=== PATIENT | female | born 1985 | race Caucasian/White ===

== ENCOUNTER 2020-04-29 08:29 | Outpatient (REF) | payer BC, SELFPAY ==
[2020-04-29 11:54] LABS: Hematocrit 42.3 % (37-47); Hemoglobin 13.8 g/dl (12.0-16.0); Mean Corpuscular HGB Conc 32.6 g/dl (31.0-35.0); Mean Corpuscular Hemoglobin 30.3 pg (27.0-33.0); Mean Platelet Volume 9.4 fL (9.4-12.3); Platelet Count 305 X10*3/uL (160-400); Red Blood Count 4.55 X10*6/uL (4.20-5.50); Red Cell Distribution Width 12.6 % (11.0-16.0); White Blood Count 10.4 X10*3/uL (4.8-10.8)
[2020-04-29 12:13] LABS: UPreg QC Valid YES; Urine Pregnancy NEGATIVE (NEGATIVE)
[2020-04-29 12:20] LABS: Alanine Aminotransferase 25 U/L (0-31); Albumin Level 4.1 g/dL (3.5-5.0); Alkaline Phosphatase 64 U/L (39-117); Anion Gap 14 (12-20); Aspartate Amino Transferase 21 U/L (5-31); Bilirubin Total 0.3 mg/dL (0.0-1.0); Blood Urea Nitrogen 14 mg/dL (9-16); Calcium 8.7 mg/dL (8.4-10.2); Carbon Dioxide 28 mmol/L (22-29); Chloride 104 mmol/L (96-108); Cholesterol 117 mg/dL; Estimated Glomerular Filt Rate > 60; Glucose Fasting 98 mg/dL (60-99); HDL Cholesterol 35 mg/dL; LDL Cholesterol Calculated 57 mg/dl; Potassium 4.7 mmol/L (3.3-5.1); Sodium 141 mmol/L (135-145); Total Protein 7.3 g/dL (6.5-8.0); Triglycerides 125 mg/dL
[2020-04-29 12:50] LABS: TSH reflex Free T4 3.11 uIU/mL (0.32-4.0)
== END 2020-04-29 08:30 | disposition home or self-care (01) ==
LOC: HO.HMGCLDS 08:29
PROVIDERS: PCP Internal Medicine; Visit Provider Internal Medicine
DX: Z00.00 Encounter for general adult medical examination without abnormal findings (principal); E66.01 Morbid (severe) obesity due to excess calories; F41.9 Anxiety disorder, unspecified; I10 Essential (primary) hypertension
CPT/HCPCS: 36415; 80053; 80061; 81025; 84443; 85027

== ENCOUNTER 2021-09-18 09:34 | Outpatient (REF) | payer BC, SELFPAY ==
[2021-09-18 11:33] LABS: MANUAL DIFF FLAG NO
[2021-09-18 11:44] LABS: Appearance Urine HAZY; Color Urine YELLOW; Glucose Urine UA NEG (NEG); Leukocyte Esterase Urine 2+ (NEG); Nitrite Urine NEG (NEG); Specific Gravity - Urine 1.025 (1.005-1.025); Urine Blood NEG (NEG); Urine Ketones NEG (NEG); Urine Protein TRACE MG/DL (NEG-TRACE)
[2021-09-18 11:52] LABS: Basophils Absolute Auto 0.1 X10*3/uL (0.0-0.2); Basophils Percent Auto 1.1 % (0-2); Eosinophils Absolute Auto 0.2 X10*3/uL (0.0-0.4); Hematocrit 40.9 % (37.0-47.0); Hemoglobin 13.6 g/dl (12.0-16.0); Imm Gran Abs Auto 0.03 X10*3/uL (0.00-0.03); Imm Gran Pct Auto 0.4 % (0.0-0.4); Lymphocytes Absolute Auto 2.1 X10*3/uL (1.2-4.9); Lymphocytes Percent Auto 27.2 % (20-40); Mean Corpuscular HGB Conc 33.3 g/dl (31.0-35.0); Mean Corpuscular Hemoglobin 30.3 pg (27.0-33.0); Mean Corpuscular Volume 91.1 fL (80.0-98.0); Mean Platelet Volume 9.4 fL (9.4-12.3); Monocytes Absolute Auto 0.5 X10*3/uL (0.1-1.2); Monocytes Percent Auto 6.1 % (2-11); Neutrophils Absolute Auto 4.8 x10*3/uL (2.0-8.3); Neutrophils Percent Auto 63.2 % (45-73); Platelet Count 289 X10*3/uL (160-400); Red Blood Count 4.49 X10*6/uL (4.20-5.50); Red Cell Distribution Width 12.8 % (11.0-16.0); White Blood Count 7.5 X10*3/uL (4.8-10.8)
[2021-09-18 12:06] LABS: Mucus Urine 1+ /LPF; Squamous Epithelial Cell Urine 2+ /LPF
[2021-09-18 12:09] LABS: Estimated Average Glucose 108 mg/dL; Hemoglobin A1c % 5.4 %
[2021-09-18 12:17] LABS: Alanine Aminotransferase 21 U/L (0-31); Albumin Level 4.2 g/dL (3.5-5.0); Alkaline Phosphatase 63 U/L (39-117); Anion Gap 14 (12-20); Aspartate Amino Transferase 17 U/L (5-31); Bilirubin Total 0.5 mg/dL (0.0-1.0); Blood Urea Nitrogen 11 mg/dL (9-16); Carbon Dioxide 26 mmol/L (22-29); Chloride 104 mmol/L (96-108); Cholesterol 141 mg/dL; Estimated Glomerular Filt Rate > 60; Glucose Fasting 95 mg/dL (60-99); HDL Cholesterol 37 mg/dL; LDL Cholesterol Calculated 70 mg/dl; Potassium 4.5 mmol/L (3.3-5.1); Sodium 139 mmol/L (135-145); Total Protein 7.4 g/dL (6.5-8.0); Triglycerides 174 mg/dL
[2021-09-18 12:22] LABS: Insulin 31 uU/mL (2-29); TSH reflex Free T4 3.33 uIU/mL (0.32-4.0)
== END 2021-09-18 09:35 | disposition home or self-care (01) ==
LOC: HO.HMGCLDS 09:34
PROVIDERS: Visit Provider Internal Medicine
DX: Z00.00 Encounter for general adult medical examination without abnormal findings (principal); I10 Essential (primary) hypertension; E28.2 Polycystic ovarian syndrome
CPT/HCPCS: 36415; 80053; 80061; 81001; 83036; 83525; 84443; 85025

== ENCOUNTER → 2021-12-03 12:12 | Outpatient (BNVA) | payer BC, SELFPAY | PROVIDERS: PCP Internal Medicine; Visit Provider Dietitian, Registered | DX: E66.01 Morbid (severe) obesity due to excess calories (principal); Z68.43 Body mass index [BMI] 50.0-59.9, adult | CPT/HCPCS: 97802 ==

== ENCOUNTER → 2022-01-28 12:42 | Outpatient (BNVA) | payer BC, SELFPAY | PROVIDERS: PCP Internal Medicine; Visit Provider Dietitian, Registered | DX: E66.01 Morbid (severe) obesity due to excess calories (principal) | CPT/HCPCS: 97803 ==

== ENCOUNTER 2022-03-24 08:53 | Outpatient (REF) | payer BC, SELFPAY ==
[2022-03-24 11:19] LABS: MANUAL DIFF FLAG NO
[2022-03-24 11:30] LABS: Appearance Urine Cloudy; Color Urine Yellow; Glucose Urine UA Negative (Negative); Leukocyte Esterase Urine Trace (Negative); Nitrite Urine Negative (Negative); UMIC TRIGGER UA YES; Urine Blood Negative (Negative); Urine Ketones Negative (Negative); Urine Protein 30 (1+) mg/dL (Neg-Trace)
[2022-03-24 11:38] LABS: Basophils Absolute Auto 0.1 X10*3/uL (0.0-0.2); Basophils Percent Auto 0.9 % (0-2); Eosinophils Absolute Auto 0.2 X10*3/uL (0.0-0.4); Eosinophils Percent Auto 2.4 % (0-4); Hematocrit 42.4 % (37.0-47.0); Hemoglobin 14.1 g/dl (12.0-16.0); Imm Gran Abs Auto 0.06 X10*3/uL (0.00-0.03); Imm Gran Pct Auto 0.7 % (0.0-0.4); Lymphocytes Absolute Auto 1.9 X10*3/uL (1.2-4.9); Lymphocytes Percent Auto 22.7 % (20-40); Mean Corpuscular HGB Conc 33.3 g/dl (31.0-35.0); Mean Corpuscular Hemoglobin 30.3 pg (27.0-33.0); Mean Platelet Volume 9.5 fL (9.4-12.3); Monocytes Absolute Auto 0.5 X10*3/uL (0.1-1.2); Monocytes Percent Auto 5.3 % (2-11); Neutrophils Absolute Auto 5.8 x10*3/uL (2.0-8.3); Platelet Count 283 X10*3/uL (160-400); Red Blood Count 4.66 X10*6/uL (4.20-5.50); Red Cell Distribution Width 12.6 % (11.0-16.0); White Blood Count 8.5 X10*3/uL (4.8-10.8)
[2022-03-24 11:46] LABS: Bacteria Urine None Seen (None Seen); RBC Urine 0-2 /HPF (0-2); WBC Urine 0-5 /HPF (0-5)
[2022-03-24 11:56] LABS: Estimated Average Glucose 111 mg/dL; Hemoglobin A1c % 5.5 %
[2022-03-24 12:17] LABS: Alanine Aminotransferase 20 U/L (0-31); Albumin Level 4.2 g/dL (3.5-5.0); Alkaline Phosphatase 69 U/L (39-117); Anion Gap 13 (12-20); Aspartate Amino Transferase 17 U/L (5-31); Bilirubin Total 0.3 mg/dL (0.0-1.0); Blood Urea Nitrogen 12 mg/dL (9-16); Calcium 9.1 mg/dL (8.4-10.2); Carbon Dioxide 27 mmol/L (22-29); Chloride 104 mmol/L (96-108); Estimated Glomerular Filt Rate > 60; Glucose Fasting 115 mg/dL (60-99); Potassium 4.7 mmol/L (3.3-5.1); Sodium 139 mmol/L (135-145); Total Protein 7.3 g/dL (6.5-8.0)
[2022-03-24 12:40] LABS: TSH reflex Free T4 4.19 uIU/mL (0.32-4.0)
[2022-03-24 13:34] LABS: Free T4 (Free Thyroxine) 0.82 ng/dL (0.71-1.85)
[2022-03-27 05:14] LABS: TS Negative Control Passed; TS Panel A 0; TS Panel B 0; TS Positive Control Passed; TSpotTB Negative (Negative)
== END 2022-03-24 08:54 | disposition home or self-care (01) ==
LOC: HO.HMGCLDS 08:53
PROVIDERS: PCP Internal Medicine; Visit Provider Internal Medicine
DX: Z00.00 Encounter for general adult medical examination without abnormal findings (principal); E28.2 Polycystic ovarian syndrome; I10 Essential (primary) hypertension
CPT/HCPCS: 36415; 80053; 81001; 83036; 84439; 84443; 85025; 86481

== ENCOUNTER 2022-03-24 09:03 | Outpatient (REF) | payer BC, SELFPAY ==
[2022-03-27 22:02] LABS: HPV mRNA E6/E7 Not Detected (Not Detected)
== END 2022-03-24 09:04 | disposition home or self-care (01) ==
LOC: HO.LNP 09:03
PROVIDERS: Visit Provider Internal Medicine
DX: Z01.419 Encounter for gynecological examination (general) (routine) without abnormal findings (principal); E28.2 Polycystic ovarian syndrome; I10 Essential (primary) hypertension
CPT/HCPCS: 87624; 88142

== ENCOUNTER 2022-04-02 09:06 | Outpatient (REF) | payer BC, SELFPAY ==
[2022-04-02 11:41] LABS: Appearance Urine Clear; Color Urine Yellow; Glucose Urine UA Negative (Negative); Leukocyte Esterase Urine Moderate (2+) (Negative); Nitrite Urine Negative (Negative); PH 7.5 (5.0-9.0); Specific Gravity - Urine 1.025 (1.005-1.025); UMIC TRIGGER UA YES; Urine Blood Negative (Negative); Urine Ketones Negative (Negative); Urine Protein 30 (1+) mg/dL (Neg-Trace)
[2022-04-02 11:48] LABS: Bacteria Urine Trace (None Seen); Hyaline Casts Urine 0-2 /LPF (0-2); RBC Urine 0-2 /HPF (0-2); WBC Urine 21-50 /HPF (0-5)
[2022-04-02 13:18] LABS: Creatinine Urine 121.41 mg/dL; Microalbum/Creatinine Ratio Ur 101.3 ug/mg cr
== END 2022-04-02 09:07 | disposition home or self-care (01) ==
LOC: HO.HMGCLDS 09:06
PROVIDERS: PCP Internal Medicine; Visit Provider Internal Medicine
DX: R80.9 Proteinuria, unspecified (principal)
CPT/HCPCS: 81001; 82043

== ENCOUNTER 2022-04-06 13:45 | Outpatient (REF) | payer BC, SELFPAY ==
[2022-04-06 16:30] LABS: Appearance Urine Clear; Color Urine Yellow; Glucose Urine UA Negative (Negative); Leukocyte Esterase Urine Trace (Negative); Nitrite Urine Negative (Negative); PH 8.5 (5.0-9.0); UMIC TRIGGER UA YES; Urine Blood Negative (Negative); Urine Ketones Negative (Negative); Urine Protein 30 (1+) mg/dL (Neg-Trace)
[2022-04-06 16:33] LABS: Bacteria Urine Trace (None Seen); Hyaline Casts Urine 0-2 /LPF (0-2); RBC Urine 0-2 /HPF (0-2); WBC Urine 0-5 /HPF (0-5)
== END 2022-04-06 13:46 | disposition home or self-care (01) ==
LOC: HO.HMGCLDS 13:45
PROVIDERS: PCP Internal Medicine; Visit Provider Internal Medicine
DX: R80.9 Proteinuria, unspecified (principal)
CPT/HCPCS: 81001; 87086

== ENCOUNTER → 2022-05-27 13:16 | Outpatient (BNVA) | payer BC, SELFPAY | PROVIDERS: PCP Internal Medicine; Visit Provider Dietitian, Registered | DX: E66.01 Morbid (severe) obesity due to excess calories (principal); Z68.43 Body mass index [BMI] 50.0-59.9, adult | CPT/HCPCS: 97803 ==

== ENCOUNTER 2022-09-30 11:10 | Outpatient (REF) | payer BC, SELFPAY ==
[2022-09-30 14:39] LABS: TSH reflex Free T4 2.87 uIU/mL (0.32-4.0)
== END 2022-09-30 11:11 | disposition home or self-care (01) ==
LOC: HO.HMGCLDS 11:10
PROVIDERS: PCP Internal Medicine; Visit Provider Internal Medicine
DX: E03.9 Hypothyroidism, unspecified (principal); R80.9 Proteinuria, unspecified
CPT/HCPCS: 36415; 84443

== ENCOUNTER 2022-11-25 14:22 | Outpatient (AMB) | payer BC, SELFPAY ==
[2022-11-25 14:27] VITALS: BMI 58.7
--- NOTE | 2022-11-25 14:27 | A.OFFVIS_ITS ---
Intake VS Expanded 11/25/22 14:27 Height 5 ft 7 in Weight 375 lb 0.101 oz BMI 58.7 Intake Visit Reasons: wt management Allergies No Known Allergies Allergy (Verified 03/24/22 08:15) HPI Nutrition Presentation Details Pt presents for 6 months MNT f/u for obesity. Pt reports having stopped meal planning and resuming old habits , combination of eating out and vacation Physical activity : keeping sedentary -contemplating starting physical activity routine Most Recent Diabetes Results: Microalb/Creat Ratio 101.3 ug/mg cr 04/02/22 Cholesterol 141 mg/dL 09/18/21 HDL Cholesterol 37 mg/dL 09/18/21 Triglycerides 174 mg/dL 09/18/21 Creatinine 0.75 mg/dL (0.5-1.4) 03/24/22 Blood Urea Nitrogen 12 mg/dL (9-16) 03/24/22 Sodium 139 mmol/L (135-145) 03/24/22 Potassium 4.7 mmol/L (3.3-5.1) 03/24/22 Chloride 104 mmol/L (96-108) 03/24/22 Carbon Dioxide 27 mmol/L (22-29) 03/24/22 Calcium 9.1 mg/dL (8.4-10.2) 03/24/22 AST 17 U/L (5-31) 03/24/22 ALT 20 U/L (0-31) 03/24/22 Total Protein 7.3 g/dL (6.5-8.0) 03/24/22 Albumin 4.2 g/dL (3.5-5.0) 03/24/22 [facility] Medical History (Updated 12/03/22 @ 12:59 by Chloe Bella, RD, LDN) Annual physical exam HTN (hypertension) PCOS (polycystic ovarian syndrome) Hypothyroid Amenorrhea Morbid obesity Menorrhagia Anxiety Family History Father Diabetes mellitus Mother Hypothyroidism Paternal Grandmother Ovarian cancer Paternal Grandfather Diabetes mellitus Social History Housing: House Alcohol intake: current Alcohol intake frequency: holidays/special occasions only Patient Tobacco Use Status: Never used Tobacco e-Cigarette/Vaping Use: Never Used Current occupational status: employed Cognitive needs: No Hearing needs: No Vision needs: Yes Assessment & Plan Assessment & Plan (1) Morbid obesity: Comment: BMI 58.7/375 lbs (11/2022) 56/360 lbs (05/27/22), 56.2/359 lbs(01/28/22), 57.9/370 lbs (12/03/21) Code(s): E66.01 - Morbid (severe) obesity due to excess calories Plan: Resume reducing calories from high fat foods and engaging in physical activity goal 2513-9135 calorie meal plan ? Pt's set goal (Date: 12/03/21 ): reduce bedtime snack to <200 calories and less than 15 g carb at follow up (Date: 01/28/22 ): 50% f/u 11/2022 DID not continue - Used wt : 163 kg on 01/28/22 Est kcal as per MSJ: 2810 -250= 2560 (40% carb, 30% fat/prot) Est fluid needs: 4075 ml/d (25 ml/kg bw) Rec fiber: increase to 8-10 g per day and gradually increase to 25 g/d or as tolerated Rec Na: < 2000 mg /d Educate patient on: (R= Reviewed, V = verbalizes understanding N/R= Needs review N/A= not applicable) * Food sources of carbohydrates and serving adequate serving sizes : R V * Difference between complex carbohydrates and simple carbohydrates, role of fiber: R * Differences between fats (MUFA/PUFA/saturated fats, trans fats) and food sources of various fats: R * Food sources of sodium and salt and healthy modifications for heart health an d kidney health: R * Vitamins and minerals: N/R * How to interpret food labels: R * Healthy Plate method concept: R * Physical activity: benefits and precaution: N/R * Health risks associated with excess body weight including but not limited to DM, CHD, risks of bone fractures Patient Instructions: Goal of walking daily for 10 minutes getting into a routine and gradually increase by 2 minutes until reaching 30 minutes 3-4 times a week Increase water to 16 oz per day and gradually increase to 32 oz/day use phone jaelyn to keep track of your meals Coding Level of Care Code Nutr Indiv Subseq (14857) Diagnoses Morbid obesity E66.01 Time Spent (min) 30
== END 2022-11-25 15:14 | disposition home or self-care (01) ==
PROVIDERS: PCP Internal Medicine; Visit Provider Dietitian, Registered
DX: E66.01 Morbid (severe) obesity due to excess calories (principal)

== ENCOUNTER → 2022-11-25 14:22 | Outpatient (BNVA) | payer BC, SELFPAY | PROVIDERS: PCP Internal Medicine; Visit Provider Dietitian, Registered | DX: E66.01 Morbid (severe) obesity due to excess calories (principal); Z68.43 Body mass index [BMI] 50.0-59.9, adult; Z71.3 Dietary counseling and surveillance | CPT/HCPCS: 97803 ==

== ENCOUNTER 2023-01-13 13:49 | Outpatient (AMB) | payer BC, SELFPAY ==
[2023-01-13 13:57] VITALS: BMI 58.1
--- NOTE | 2023-01-13 13:57 | A.OFFVIS_ITS ---
Intake VS Expanded 01/13/23 13:57 Height 5 ft 7 in Weight 370 lb 13.08 oz BMI 58.1 Intake Visit Reasons: WT Management Allergies No Known Allergies Allergy (Verified 03/24/22 08:15) HPI Nutrition Presentation Details Pt presents for MNT for obesity. Pt reports participating in group exercise once /wk Planning to join the gym with Gradually working on reducing portions, switching to smaller plates HAs questions regarding macros Most Recent Diabetes Results: Microalb/Creat Ratio 101.3 ug/mg cr 04/02/22 Creatinine 0.75 mg/dL (0.5-1.4) 03/24/22 Blood Urea Nitrogen 12 mg/dL (9-16) 03/24/22 Sodium 139 mmol/L (135-145) 03/24/22 Potassium 4.7 mmol/L (3.3-5.1) 03/24/22 Chloride 104 mmol/L (96-108) 03/24/22 Carbon Dioxide 27 mmol/L (22-29) 03/24/22 Calcium 9.1 mg/dL (8.4-10.2) 03/24/22 AST 17 U/L (5-31) 03/24/22 ALT 20 U/L (0-31) 03/24/22 Total Protein 7.3 g/dL (6.5-8.0) 03/24/22 Albumin 4.2 g/dL (3.5-5.0) 03/24/22 [facility] Medical History (Updated 01/14/23 @ 09:08 by Chloe Bella, RD, LDN) Annual physical exam HTN (hypertension) PCOS (polycystic ovarian syndrome) Hypothyroid Amenorrhea Morbid obesity Menorrhagia Anxiety Family History Father Diabetes mellitus Mother Hypothyroidism Paternal Grandmother Ovarian cancer Paternal Grandfather Diabetes mellitus Social History Housing: House Alcohol intake: current Alcohol intake frequency: holidays/special occasions only Patient Tobacco Use Status: Never used Tobacco e-Cigarette/Vaping Use: Never Used Current occupational status: employed Cognitive needs: No Hearing needs: No Vision needs: Yes Assessment & Plan Assessment & Plan (1) Morbid obesity: Comment: BMI 58.1 (01/11) 58.7/375 lbs (11/2022) 56/360 lbs (05/27/22), 56.2/359 lbs(01/28/22), 57.9/370 lbs (12/03/21), Code(s): E66.01 - Morbid (severe) obesity due to excess calories Plan: Resume reducing calories from high fat foods and engaging in physical activity goal 3090-4640 calorie meal plan ? Pt's set goal (Date: 12/03/21 ): reduce bedtime snack to <200 calories and less than 15 g carb at follow up (Date: 01/28/22 ): 50% f/u 11/2022 DID not continue - Used wt : 163 kg on 01/28/22 Est kcal as per MSJ: 2810 -250= 2560 (40% carb, 30% fat/prot) Est fluid needs: 4075 ml/d (25 ml/kg bw) Rec fiber: increase to 8-10 g per day and gradually increase to 25 g/d or as tolerated Rec Na: < 2000 mg /d Educate patient on: (R= Reviewed, V = verbalizes understanding N/R= Needs review N/A= not applicable) Reviewed Differences in MACRO * Food sources of carbohydrates and serving adequate serving sizes : R V * Difference between complex carbohydrates and simple carbohydrates, role of fiber: R * Differences between fats (MUFA/PUFA/saturated fats, trans fats) and food sources of various fats: R * Food sources of sodium and salt and healthy modifications for heart health and kidney health: R * Vitamins and minerals: N/R * How to interpret food labels: R * Healthy Plate method concept: R * Physical activity: benefits and precaution: N/R * Health risks associated with excess body weight including but not limited to DM, CHD, risks of bone fractures: R Patient Instructions: Choose foods high in fiber (salads/non starchy vegetables) with lean protein foods Continue working on reducing sugars keep food record/phone jaelyn goal wt loss by next f/u 4-5 lbs less Coding Level of Care Code Nutr Indiv Subseq (52351) Diagnoses Morbid obesity E66.01 Time Spent (min) 30
== END 2023-01-13 14:41 | disposition home or self-care (01) ==
PROVIDERS: PCP Internal Medicine; Visit Provider Dietitian, Registered
DX: E66.01 Morbid (severe) obesity due to excess calories (principal)

== ENCOUNTER → 2023-01-13 13:49 | Outpatient (BNVA) | payer BC, SELFPAY | PROVIDERS: PCP Internal Medicine; Visit Provider Dietitian, Registered | DX: E66.01 Morbid (severe) obesity due to excess calories (principal); Z68.43 Body mass index [BMI] 50.0-59.9, adult; Z71.3 Dietary counseling and surveillance | CPT/HCPCS: 97803 ==

== ENCOUNTER 2023-03-10 14:21 | Outpatient (AMB) | payer BC, SELFPAY ==
[2023-03-10 14:35] VITALS: BMI 57.0
--- NOTE | 2023-03-10 14:35 | A.OFFVIS_ITS ---
Intake VS Expanded 03/10/23 14:35 Height 5 ft 7 in Weight 364 lb 3.258 oz BMI 57.0 Intake Visit Reasons: Obesity/LVM Allergies No Known Allergies Allergy (Verified 03/24/22 08:15) HPI Nutrition Presentation Details Pt presnts for MNT nutrition f/u for obesity , PCOS, HTN. Pt reports working on including more water in the diet , reports having 16 oz of water/day Increasing physical activity, keeps track of steps ranging from 6,000-8000 Most Recent Diabetes Results: Microalb/Creat Ratio 101.3 ug/mg cr 04/02/22 Creatinine 0.75 mg/dL (0.5-1.4) 03/24/22 Blood Urea Nitrogen 12 mg/dL (9-16) 03/24/22 Sodium 139 mmol/L (135-145) 03/24/22 Potassium 4.7 mmol/L (3.3-5.1) 03/24/22 Chloride 104 mmol/L (96-108) 03/24/22 Carbon Dioxide 27 mmol/L (22-29) 03/24/22 Calcium 9.1 mg/dL (8.4-10.2) 03/24/22 AST 17 U/L (5-31) 03/24/22 ALT 20 U/L (0-31) 03/24/22 Total Protein 7.3 g/dL (6.5-8.0) 03/24/22 Albumin 4.2 g/dL (3.5-5.0) 03/24/22 [facility] Medical History (Updated 03/10/23 @ 14:38 by Chloe Bella, RD, LDN) Annual physical exam HTN (hypertension) PCOS (polycystic ovarian syndrome) Hypothyroid Amenorrhea Morbid obesity Menorrhagia Anxiety Family History Father Diabetes mellitus Mother Hypothyroidism Paternal Grandmother Ovarian cancer Paternal Grandfather Diabetes mellitus Social History Housing: House Alcohol intake: current Alcohol intake frequency: holidays/special occasions only Patient Tobacco Use Status: Never used Tobacco e-Cigarette/Vaping Use: Never Used Current occupational status: employed Cognitive needs: No Hearing needs: No Vision needs: Yes Assessment & Plan Assessment & Plan (1) Morbid obesity: Comment: BMI 57. 0 (03/13) , 58.1 (01/11) 58.7/375 lbs (11/2022) 56/360 lbs (05/27/22), 56.2/359 lbs(01/28/22), 57.9/370 lbs (12/03/21), Code(s): E66.01 - Morbid (severe) obesity due to excess calories Plan: Resume reducing calories from high fat foods and engaging in physical activity goal 1512-7571 calorie meal plan ? Pt's set goal (Date: 12/03/21 ): reduce bedtime snack to <200 calories and less than 15 g carb at follow up (Date: 01/28/22 ): 50% f/u 11/2022 DID not continue - follow up 02/2023 - meeting 50% of the time Used wt : 163 kg on 01/28/22 Est kcal as per MSJ: 2810 -250= 2560 (40% carb, 30% fat/prot) Est fluid needs: 4075 ml/d (25 ml/kg bw) Rec fiber: increase to 8-10 g per day and gradually increase to 25 g/d or as tolerated Rec Na: < 2000 mg /d Educate patient on: (R= Reviewed, V = verbalizes understanding N/R= Needs review N/A= not applicable) Reviewed Differences in MACRO * Food sources of carbohydrates and serving adequate serving sizes : R V * Difference between complex carbohydrates and simple carbohydrates, role of fiber: R * Differences between fats (MUFA/PUFA/saturated fats, trans fats) and food sources of various fats: R * Food sources of sodium and salt and healthy modifications for heart health and kidney health: R * Vitamins and minerals: R * How to interpret food labels: R * Healthy Plate method concept: R * Physical activity: benefits and precaution: N/R * Health risks associated with excess body weight including but not limited to DM, CHD, risks of bone fractures: R * Patient Instructions: Continue working on diet modifications, reducing sugars, total carb at meal to less than 230 g /day distributed in 4 small meal/day following healthy plate method Include water to 32 oz/day Continue increasing physical activity- goal 74628 steps/d Coding Level of Care Code Nutr Indiv Subseq (40346) Diagnoses Morbid obesity E66.01 Time Spent (min) 20
== END 2023-03-10 14:58 | disposition home or self-care (01) ==
PROVIDERS: PCP Internal Medicine; Visit Provider Dietitian, Registered
DX: E66.01 Morbid (severe) obesity due to excess calories (principal)

== ENCOUNTER → 2023-03-10 14:21 | Outpatient (BNVA) | payer BC, SELFPAY | PROVIDERS: PCP Internal Medicine; Visit Provider Dietitian, Registered | DX: E66.01 Morbid (severe) obesity due to excess calories (principal); Z68.43 Body mass index [BMI] 50.0-59.9, adult; Z71.3 Dietary counseling and surveillance | CPT/HCPCS: 97803 ==

== ENCOUNTER 2023-03-25 07:51 | Outpatient (AMB) | payer BC, SELFPAY ==
--- NOTE | 2023-03-25 08:04 | MHC.PC.OV ---
Vital Signs 03/25/23 08:06 Height 5 ft 7 in Weight 367 lb BMI 57.5 BP 144/90 H Blood Pressure Location Lt brachial Position Sitting Pulse 79 Pulse Source Pulse Oximeter Pulse Oximetry (%) 98 Oxygen Delivery Method Room Air Intake Visit Reasons: Annual PE Intake Note: Pt is here today for PE. Allergies No Known Allergies Allergy (Verified 03/25/23 08:07) Medication List - Last Reconciled 03/25/23 by Angélica Ford MD bisoprolol fumarate 5 mg PO DAILY flu vac qs 2019(4 yr up)CD(PF) mL IM levothyroxine 88 mcg PO DAILY metformin ER 2,000 mg (4 x 500 mg) PO DAILY sertraline 50 mg PO DAILY Tobacco use date assessed: 03/25/23 Dental Screening Dental Screen Date: 03/25/23 Did you have a dental visit in the last 12 months?: Yes Did you have a dental problem in the last 6 months where you did not have access to dental care?: No Was dental information given to patient?: Patient has dentist HPI Annual PE HPI Details Pt presents for PE. Pt c/o GERD symptoms once or twice a month. Patient denies dysphagia odynophagia hematochezia melena. She gained a lot a weight over the summer and has been working with wiring mechanic trying to lose it. Patient applied for adoption. [facility] Medical History Annual physical exam HTN (hypertension) PCOS (polycystic ovarian syndrome) Hypothyroid Amenorrhea Morbid obesity Menorrhagia Anxiety Family History Father Diabetes mellitus Mother Hypothyroidism Paternal Grandmother Ovarian cancer Paternal Grandfather Diabetes mellitus Social History Housing: House Alcohol intake: current Alcohol intake frequency: holidays/special occasions only Patient Tobacco Use Status: Never used Tobacco e-Cigarette/Vaping Use: Never Used Current occupational status: employed Cognitive needs: No Hearing needs: No Vision needs: Yes Questionnaire Thrive Questionnaire Date Thrive assessed: 03/24/22 AUDIT C Alcohol Use Questionnaire (AUDIT-C) 1. How often do you have a drink containing alcohol?: Monthly or less 2. How many drinks containing alcohol do you have on a typical day when you are drinking?: 1 or 2 3. How often do you have six or more drinks on one occasion?: Never Total Score: 1 PRO-7 AMB Questionnaire PRO-7 Date PRO - 7 assessed: 03/24/22 Source: Developed by Drs. Billy Emery, Rowena De La Cruz, Soy Griggs and colleagues, with an educational loraine from [employer]. Review of Systems Const All systems reviewed & are unremarkable except as noted in HPI and below Reports no additional complaints Eyes Reports no additional complaints ENT Reports no additional complaints Card Reports no additional complaints Resp Reports no additional complaints GI Reports no additional complaints Reports no additional complaints Physical exam (Primary Care) Vital Signs: Last Vital Signs Pulse 79 03/25/23 08:06 BP 144/90 H 03/25/23 08:06 Pulse Ox 98 03/25/23 08:06 Oxygen Delivery Method Room Air 03/25/23 08:06 BMI result Body Mass Index 57.5 Tobacco/Smoking Status: Tobacco use Status Tobacco use date assessed 03/25/23 03/25/23 08:10 Patient Tobacco Use Status Never used Tobacco 03/25/23 08:10 e-Cigarette/Vaping Use Never Used 03/25/23 08:04 Thrive Assessment: Date of Thrive Assessment Date Thrive assessed 03/24/22 03/25/23 08:04 Const General: no acute distress HENMT Head: Yes normal to inspection Ears: hearing grossly normal bilaterally Mouth: Normal oral and palatal mucosa present Throat: Yes posterior oropharynx normal Eyes General: appearance normal, both eyes and all related structures Neck Neck: Yes no lymphadenopathy and Yes supple Resp Effort & Inspection: normal respiratory effort Auscultation: clear to auscultation bilaterally Cardio Rhythm: regular rhythm Heart sounds: S1 normal heart sound present and S2 normal heart sound present GI Inspection: Yes normal to inspection Palpation (GI): Soft to palpation Percussion: Yes normal to percussion Auscultation: normal bowel sounds Assessment and Plan Assessment & Plan (1) Hypothyroid: Code(s): E03.9 - Hypothyroidism, unspecified Plan: Continue levothyroxine check TSH today (2) Morbid obesity: Comment: BMI 57. 0 (03/13) , 58.1 (01/11) 58.7/375 lbs (11/2022) 56/360 lbs (05/27/22), 56.2/359 lbs(01/28/22), 57.9/370 lbs (12/03/21), Code(s): E66.01 - Morbid (severe) obesity due to excess calories Plan: Continue weight management program with wiring mechanic (3) PCOS (polycystic ovarian syndrome): Comment: on Metformin f/u [facility] community organization worker Code(s): E28.2 - Polycystic ovarian syndrome Plan: Continue metformin (4) Annual physical exam: Code(s): Z00.00 - Encounter for general adult medical examination without abnormal findings Plan: Well-balanced diet regular physical activity weight loss discussed with the patient. She will have a fasting blood work today (5) HTN (hypertension): Code(s): I10 - Essential (primary) hypertension Plan: Olmesartan 5 mg will be added. Patient will follow-up in 1 month (6) Sleep apnea: Code(s): G47.30 - Sleep apnea, unspecified Plan: Obtain sleep studies to evaluate for obstructive sleep apnea Orders: Orders Hemoglobin A1c Today E03.9 - Hypothyroidism, unspecified, E28.2 - Polycystic ovarian syndrome, E66.01 - Morbid (severe) obesity due to excess calories, I10 - Essential (primary) hypertension, Z00.00 - Encounter for general adult medical examination without abnormal findings Complete Blood Count Auto Diff Today E03.9 - Hypothyroidism, unspecified, E28.2 - Polycystic ovarian syndrome, E66.01 - Morbid (severe) obesity due to excess calories, I10 - Essential (primary) hypertension, Z00.00 - Encounter for general adult medical examination without abnormal findings Lipid Panel Today E03.9 - Hypothyroidism, unspecified, E28.2 - Polycystic ovarian syndrome, E66.01 - Morbid (severe) obesity due to excess calories, I10 - Essential (primary) hypertension, Z00.00 - Encounter for general adult medical examination without abnormal findings TSH reflex Free T4 Today E03.9 - Hypothyroidism, unspecified, E28.2 - Polycystic ovarian syndrome, E66.01 - Morbid (severe) obesity due to excess calories, I10 - Essential (primary) hypertension, Z00.00 - Encounter for general adult medical examination without abnormal findings UA w Microscopic Today E03.9 - Hypothyroidism, unspecified, E28.2 - Polycystic ovarian syndrome, E66.01 - Morbid (severe) obesity due to excess calories, I10 - Essential (primary) hypertension, Z00.00 - Encounter for general adult medical examination without abnormal findings RT home sleep study Today G47.30 - Sleep apnea, unspecified Comprehensive [place]. Panel Fast Today E03.9 - Hypothyroidism, unspecified, E28.2 - Polycystic ovarian syndrome, E66.01 - Morbid (severe) obesity due to excess calories, I10 - Essential (primary) hypertension, Z00.00 - Encounter for general adult medical examination without abnormal findings Microalbumin, Random (w Creat) Today E03.9 - Hypothyroidism, unspecified, E28.2 - Polycystic ovarian syndrome, E66.01 - Morbid (severe) obesity due to excess calories, I10 - Essential (primary) hypertension, Z00.00 - Encounter for general adult medical examination without abnormal findings Medications: New olmesartan 5 mg PO DAILY 30 tabs 1RF Coding Level of Care Code Est Pt Prev Care 18-39y(62102) Diagnoses Hypothyroid E03.9 Morbid obesity E66.01 PCOS (polycystic ovarian syndrome) E28.2 Annual physical exam Z00.00 HTN (hypertension) I10 Sleep apnea G47.30
[2023-03-25 08:06] VITALS: BP 144/90; PULSE 79; O2SAT 98; BMI 57.5
== END 2023-03-25 08:47 | disposition home or self-care (01) ==
PROVIDERS: PCP Internal Medicine; Visit Provider Internal Medicine
DX: Z00.00 Encounter for general adult medical examination without abnormal findings (principal); E66.01 Morbid (severe) obesity due to excess calories; Z68.43 Body mass index [BMI] 50.0-59.9, adult; E03.9 Hypothyroidism, unspecified; E28.2 Polycystic ovarian syndrome; I10 Essential (primary) hypertension; G47.30 Sleep apnea, unspecified
CPT/HCPCS: 99395

== ENCOUNTER 2023-03-25 08:47 | Outpatient (REF) | payer BC, SELFPAY | END 2023-03-25 08:48 | disposition home or self-care (01) | LOC: HO.HMGCLDS 08:47 | PROVIDERS: PCP Internal Medicine; Visit Provider Internal Medicine | DX: Z00.00 Encounter for general adult medical examination without abnormal findings (principal); E03.9 Hypothyroidism, unspecified; E66.01 Morbid (severe) obesity due to excess calories; I10 Essential (primary) hypertension; E28.2 Polycystic ovarian syndrome | CPT/HCPCS: 36415; 80053; 80061; 81001; 82043; 82570; 83036; 84443; 85025 ==

== ENCOUNTER → 2023-05-04 15:58 | Outpatient (REF) | payer BC, SELFPAY | LOC: HO.SL 15:58 | PROVIDERS: PCP Internal Medicine; Visit Provider Internal Medicine | DX: G47.33 Obstructive sleep apnea (adult) (pediatric) (principal) | CPT/HCPCS: 95806 ==

== ENCOUNTER → 2023-05-04 16:03 | Outpatient (BNV) | payer BC, SELFPAY | PROVIDERS: PCP Internal Medicine; Visit Provider Internal Medicine | DX: G47.33 Obstructive sleep apnea (adult) (pediatric) (principal) | CPT/HCPCS: 95806 ==

== ENCOUNTER 2023-05-19 12:39 | Outpatient (AMB) | payer BC, SELFPAY ==
[2023-05-19 12:51] VITALS: BP 128/88; PULSE 82; O2SAT 98; BMI 56.1
--- NOTE | 2023-05-19 12:51 | MHC.PC.OV ---
Vital Signs 05/19/23 12:51 Height 5 ft 7 in Weight 358 lb BMI 56.1 BP 128/88 Blood Pressure Location Lt brachial Position Sitting Pulse 82 Pulse Source Pulse Oximeter Pulse Oximetry (%) 98 Oxygen Delivery Method Room Air Intake Visit Reasons: dm follow up Intake Note: Pt is here today for a follow up visit on HTN. Allergies No Known Allergies Allergy (Verified 05/19/23 13:08) Medication List - Last Reconciled 05/19/23 by Angélica Ford MD bisoprolol fumarate 5 mg PO DAILY flu vac qs 2019(4 yr up)CD(PF) mL IM levothyroxine 88 mcg PO DAILY metformin ER 2,000 mg (4 x 500 mg) PO DAILY olmesartan 10 mg (2 x 5 mg) PO DAILY sertraline 50 mg PO DAILY Tobacco use date assessed: 05/19/23 HPI dm follow up HPI Details Patient presents for the follow-up of hypothyroidism PCOS hyperglycemia and hypertension. [facility] Medical History (Updated 05/19/23 @ 13:53 by Angélica Ford MD) Annual physical exam HTN (hypertension) PCOS (polycystic ovarian syndrome) Hypothyroid Amenorrhea Morbid obesity Menorrhagia Anxiety Family History Father Diabetes mellitus Mother Hypothyroidism Paternal Grandmother Ovarian cancer Paternal Grandfather Diabetes mellitus Social History Housing: House Alcohol intake: current Alcohol intake frequency: holidays/special occasions only Patient Tobacco Use Status: Never used Tobacco e-Cigarette/Vaping Use: Never Used Current occupational status: employed Cognitive needs: No Hearing needs: No Vision needs: Yes Questionnaire Thrive Questionnaire Date Thrive assessed: 03/24/22 PRO-7 AMB Questionnaire PRO-7 Date PRO - 7 assessed: 03/24/22 Source: Developed by Drs. Billy Emery, Rowena De La Cruz, Soy Griggs and colleagues, with an educational loraine from [employer]. Review of Systems Const All systems reviewed & are unremarkable except as noted in HPI and below Reports no additional complaints Eyes Reports no additional complaints ENT Reports no additional complaints Card Reports no additional complaints Resp Reports no additional complaints GI Reports no additional complaints Reports no additional complaints Physical exam (Primary Care) Vital Signs: Last Vital Signs Pulse 82 05/19/23 12:51 BP 128/88 05/19/23 12:51 Pulse Ox 98 05/19/23 12:51 Oxygen Delivery Method Room Air 05/19/23 12:51 BMI result Body Mass Index 56.1 Tobacco/Smoking Status: Tobacco use Status Tobacco use date assessed 05/19/23 05/19/23 13:08 Patient Tobacco Use Status Never used Tobacco 05/19/23 12:52 e-Cigarette/Vaping Use Never Used 05/19/23 12:52 Thrive Assessment: Date of Thrive Assessment Date Thrive assessed 03/24/22 05/19/23 12:52 Const General: no acute distress HENMT Head: Yes normal to inspection Neck Neck: Yes supple Resp Effort & Inspection: normal respiratory effort Auscultation: clear to auscultation bilaterally Cardio Rhythm: regular rhythm Heart sounds: S1 normal heart sound present and S2 normal heart sound present GI Inspection: Yes normal to inspection Palpation (GI): Soft to palpation Assessment and Plan Assessment & Plan (1) HTN (hypertension): Code(s): I10 - Essential (primary) hypertension Plan: Increase olmesartan to 10 mg a day and continue bisoprolol, check basic metabolic panel in 2 weeks and follow-up in 6 weeks (2) Proteinuria: Code(s): R80.9 - Proteinuria, unspecified Plan: Obtain 24 hour urine collection (3) Sleep apnea: Comment: mild YONY sleep studies 05/15 Code(s): G47.30 - Sleep apnea, unspecified Plan: Sleeping on his side and weight loss discussed (4) Morbid obesity: Comment: BMI 57. 0 (03/13) , 58.1 (01/11) 58.7/375 lbs (11/2022) 56/360 lbs (05/27/22), 56.2/359 lbs(01/28/22), 57.9/370 lbs (12/03/21), not interested in GLP 1 agonist Code(s): E66.01 - Morbid (severe) obesity due to excess calories Plan: weight loss discussed and follow-up with transportation department supervisor Orders: Orders Basic Metabolic Panel 2 Weeks I10 - Essential (primary) hypertension, R80.9 - Proteinuria, unspecified Protein, 24 Hr Urine Group Today I10 - Essential (primary) hypertension, R80.9 - Proteinuria, unspecified RINKU Reflex Titer and Pattern Today E66.01 - Morbid (severe) obesity due to excess calories, G47.30 - Sleep apnea, unspecified, I10 - Essential (primary) hypertension, R80.9 - Proteinuria, unspecified Medications: Changed From olmesartan 5 mg PO DAILY 30 tabs 1RF To olmesartan 10 mg (2 x 5 mg) PO DAILY 60 tabs 2RF Coding Level of Care Code Est Pt Level 4 (28840) Diagnoses HTN (hypertension) I10 Proteinuria R80.9 Sleep apnea G47.30 Morbid obesity E66.01
== END 2023-05-19 13:52 | disposition home or self-care (01) ==
PROVIDERS: PCP Internal Medicine; Visit Provider Internal Medicine
DX: I10 Essential (primary) hypertension (principal); R80.9 Proteinuria, unspecified; E66.01 Morbid (severe) obesity due to excess calories; Z68.43 Body mass index [BMI] 50.0-59.9, adult; G47.30 Sleep apnea, unspecified
CPT/HCPCS: 99214

== ENCOUNTER 2023-05-19 14:21 | Outpatient (AMB) | payer BC, SELFPAY ==
[2023-05-19 14:34] VITALS: BMI 56.3
--- NOTE | 2023-05-19 14:34 | A.OFFVIS_ITS ---
Intake VS Expanded 05/19/23 14:34 Height 5 ft 7 in Weight 359 lb 5.655 oz BMI 56.3 Intake Visit Reasons: obesity/LVM Allergies No Known Allergies Allergy (Verified 05/19/23 13:08) HPI Nutrition Presentation Details Pt presents for MNT for obesity Pt is motivated, working on gradual diet modifications and reports engaging in physical activity once a week 45 minutes ia consistent manner for the past 7 weeks. Reports is very supportive in meal planning and exercise routine as well. fluid : 16 oz water on exercise day, 10 oz other days Most Recent Diabetes Results: Microalb/Creat Ratio 100.0 ug/mg cr (<30) H 03/25/23 Cholesterol 144 mg/dL (<200) 03/25/23 HDL Cholesterol 36 mg/dL (>40) L 03/25/23 Triglycerides 150 mg/dL (<150) H 03/25/23 Creatinine 0.77 mg/dL (0.5-1.4) 03/25/23 Blood Urea Nitrogen 13 mg/dL (9-16) 03/25/23 Sodium 140 mmol/L (135-145) 03/25/23 Potassium 4.4 mmol/L (3.3-5.1) 03/25/23 Chloride 103 mmol/L (96-108) 03/25/23 Carbon Dioxide 28 mmol/L (22-29) 03/25/23 Calcium 9.1 mg/dL (8.4-10.2) 03/25/23 AST 21 U/L (5-31) 03/25/23 ALT 25 U/L (0-31) 03/25/23 Total Protein 7.6 g/dL (6.5-8.0) 03/25/23 Albumin 4.2 g/dL (3.5-5.0) 03/25/23 [facility] Medical History (Updated 05/19/23 @ 14:55 by Chloe Bella, RD, LDN) Annual physical exam HTN (hypertension) PCOS (polycystic ovarian syndrome) Hypothyroid Amenorrhea Morbid obesity Menorrhagia Anxiety Family History Father Diabetes mellitus Mother Hypothyroidism Paternal Grandmother Ovarian cancer Paternal Grandfather Diabetes mellitus Social History Housing: House Alcohol intake: current Alcohol intake frequency: holidays/special occasions only Patient Tobacco Use Status: Never used Tobacco e-Cigarette/Vaping Use: Never Used Current occupational status: employed Cognitive needs: No Hearing needs: No Vision needs: Yes Assessment & Plan Assessment & Plan (1) Morbid obesity: Comment: BMI 56.3 (05/19/23), BMI 57. 0 (03/13) , 58.1 (01/11) 58.7/375 lbs (11/2022) 56/360 lbs (05/27/22), 56.2/359 lbs (01/28/22), 57.9/370 lbs (12/03/21), Code(s): E66.01 - Morbid (severe) obesity due to excess calories Plan: Resume reducing calories from high fat foods and engaging in physical activity- goal [id number] calorie meal plan ? Pt's set goal (Date: 12/03/21 ): reduce bedtime snack to <200 calories and less than 15 g carb at follow up (Date: 01/28/22 ): 50% f/u 11/2022 DID not continue - follow up 02/2023 - meeting 50% of the time Used wt : 163 kg on 01/28/22 Est kcal as per MSJ: 2810 -250= 2560 (40% carb, 30% fat/prot) Est fluid needs: 4075 ml/d (25 ml/kg bw) Rec fiber: increase to 8-10 g per day and gradually increase to 25 g/d or as tolerated Rec Na: < 2000 mg /d Educate patient on: (R= Reviewed, V = verbalizes understanding N/R= Needs review N/A= not applicable) Reviewed Differences in MACRO * Food sources of carbohydrates and serving adequate serving sizes : R V * Difference between complex carbohydrates and simple carbohydrates, role of fiber: R * Differences between fats (MUFA/PUFA/saturated fats, trans fats) and food sources of various fats: R * Food sources of sodium and salt and healthy modifications for heart health and kidney health: R * Vitamins and minerals: R * How to interpret food labels: R * Healthy Plate method concept: R * Physical activity: benefits and precaution: N/R * Health risks associated with excess body weight including but not limited to DM, CHD, risks of bone fractures: R * Patient Instructions: -Continue working on following healthy plate method -Increase water goal 16oz daily -Engage in physical activity 2 times a week vs once a week + go for walks with dog daily Coding Level of Care Code Nutr Indiv Subseq (95382) Diagnoses Morbid obesity E66.01 Time Spent (min) 25
== END 2023-05-19 15:00 | disposition home or self-care (01) ==
PROVIDERS: PCP Internal Medicine; Visit Provider Dietitian, Registered
DX: E66.01 Morbid (severe) obesity due to excess calories (principal)

== ENCOUNTER → 2023-05-19 14:21 | Outpatient (BNVA) | payer BC, SELFPAY | PROVIDERS: PCP Internal Medicine; Visit Provider Dietitian, Registered | DX: E66.01 Morbid (severe) obesity due to excess calories (principal); Z68.43 Body mass index [BMI] 50.0-59.9, adult; Z71.3 Dietary counseling and surveillance | CPT/HCPCS: 97803 ==

== ENCOUNTER 2023-05-30 08:30 | Outpatient (REF) | payer BC, SELFPAY ==
[2023-05-31 18:54] LABS: Total Volume 24 Hour Urine 1450 mL
[2023-05-31 19:05] LABS: Creatinine, 24Hr Urine 2.1 G/Day (1.0-2.0); Creatinine, mg/dL 145.92; Protein 24 Hr Urine 276 mg/Day (<150); Protein mg/dL 19 mg/dL
== END 2023-05-30 08:31 | disposition home or self-care (01) ==
LOC: HO.HMGCLNP 08:30
PROVIDERS: PCP Internal Medicine; Visit Provider Internal Medicine
DX: R80.9 Proteinuria, unspecified (principal); I10 Essential (primary) hypertension
CPT/HCPCS: 84156

== ENCOUNTER 2023-06-05 10:28 | Outpatient (REF) | payer BC, SELFPAY ==
[2023-06-05 12:34] LABS: Anion Gap 9 (12-20); Blood Urea Nitrogen 13 mg/dL (9-16); Carbon Dioxide 31 mmol/L (22-29); Chloride 105 mmol/L (96-108); Estimated Glomerular Filt Rate > 60; Glucose Random 113 mg/dL (60-115); Sodium 141 mmol/L (135-145)
[2023-06-14 10:57] LABS: Anti Nuclear Antibody Pattern Nuclear, Homogeneous; Anti Nuclear Antibody Screen POSITIVE (NEGATIVE)
== END 2023-06-05 10:29 | disposition home or self-care (01) ==
LOC: HO.HMGCLDS 10:28
PROVIDERS: PCP Internal Medicine; Visit Provider Internal Medicine
DX: I10 Essential (primary) hypertension (principal); R80.9 Proteinuria, unspecified; E66.01 Morbid (severe) obesity due to excess calories; G47.30 Sleep apnea, unspecified
CPT/HCPCS: 36415; 80048; 86038; 86039

== ENCOUNTER 2023-07-07 10:43 | Outpatient (AMB) | payer BC, SELFPAY ==
[2023-07-07 10:53] VITALS: BP 138/85; PULSE 78; O2SAT 98; BMI 56.1
--- NOTE | 2023-07-07 10:53 | A.OFFPC_ITS ---
Vital Signs 07/07/23 10:53 Height 5 ft 7 in Weight 358 lb BMI 56.1 BP 138/85 Blood Pressure Location Rt brachial Position Sitting Pulse 78 Pulse Source Pulse Oximeter Pulse Oximetry (%) 98 Oxygen Delivery Method Room Air Intake Visit Reasons: 6WK DM F/U Allergies No Known Allergies Allergy (Verified 07/07/23 10:56) Medication List - Last Reconciled 07/07/23 by Angélica Ford MD bisoprolol fumarate 5 mg PO DAILY flu vac qs 2019(4 yr up)CD(PF) mL IM levothyroxine 88 mcg PO DAILY metformin ER 2,000 mg (4 x 500 mg) PO DAILY olmesartan 20 mg PO DAILY sertraline 50 mg PO DAILY Tobacco use date assessed: 07/07/23 Dental Screening Dental Screen Date: 03/25/23 HPI 6WK DM F/U HPI Details Pt presents for f/u HTN, hypothyroid, PCOS. [facility] Medical History (Updated 07/07/23 @ 11:38 by Angélica Ford MD) Annual physical exam HTN (hypertension) PCOS (polycystic ovarian syndrome) Hypothyroid Amenorrhea Morbid obesity Menorrhagia Anxiety Family History Father Diabetes mellitus Mother Hypothyroidism Paternal Grandmother Ovarian cancer Paternal Grandfather Diabetes mellitus Social History Housing: House Alcohol intake: current Alcohol intake frequency: holidays/special occasions only Patient Tobacco Use Status: Never used Tobacco e-Cigarette/Vaping Use: Never Used service: No Current occupational status: employed Cognitive needs: No Hearing needs: No Vision needs: Yes Questionnaire Thrive Questionnaire Date Thrive assessed: 03/24/22 PRO-7 AMB Questionnaire PRO-7 Date PRO - 7 assessed: 03/24/22 Source: Developed by Drs. Billy Emery, Rowena De La Cruz, Soy Griggs and colleagues, with an educational loraine from [employer]. Review of Systems Const All systems reviewed & are unremarkable except as noted in HPI and below Eyes Reports no additional complaints ENT Reports no additional complaints Card Reports no additional complaints Resp Reports no additional complaints GI Reports no additional complaints Physical exam (Primary Care) Vital Signs: Last Vital Signs Pulse 78 07/07/23 10:53 Pulse Ox 98 07/07/23 10:53 Oxygen Delivery Method Room Air 07/07/23 10:53 BMI result Body Mass Index 56.1 Tobacco/Smoking Status: Tobacco use Status Tobacco use date assessed 07/07/23 07/07/23 10:58 Patient Tobacco Use Status Never used Tobacco 07/07/23 10:58 e-Cigarette/Vaping Use Never Used 07/07/23 10:58 Thrive Assessment: Date of Thrive Assessment Date Thrive assessed 03/24/22 07/07/23 10:58 Const General: no acute distress HENMT Throat: Yes posterior oropharynx normal Resp Effort & Inspection: normal respiratory effort Auscultation: clear to auscultation bilaterally Cardio Rhythm: regular rhythm Heart sounds: S1 normal heart sound present and S2 normal heart sound present GI Inspection: Yes normal to inspection Palpation (GI): Soft to palpation Assessment and Plan Assessment & Plan (1) Morbid obesity: Comment: BMI 56.3 (05/19/23), BMI 57. 0 (03/13) , 58.1 (01/11) 58.7/375 lbs (11/2022) 56/360 lbs (05/27/22), 56.2/359 lbs (01/28/22), 57.9/370 lbs (12/03/21), Code(s): E66.01 - Morbid (severe) obesity due to excess calories Plan: Increasing physical activity decreasing caloric intake weight loss discussed with the patient (2) Hypothyroid: Code(s): E03.9 - Hypothyroidism, unspecified Plan: Continue levothyroxine check TSH (3) HTN (hypertension): Code(s): I10 - Essential (primary) hypertension Plan: Increase olmesartan to 20 mg a day check comprehensive panel in 2 weeks follow- up in 2 months (4) Hyperglycemia: Code(s): R73.9 - Hyperglycemia, unspecified Plan: Continue ADA diet (5) PCOS (polycystic ovarian syndrome): Comment: on Metformin f/u [facility] product technology scientist Code(s): E28.2 - Polycystic ovarian syndrome Plan: Continue metformin follow-up with cold mill operator Orders: Orders Comprehensive [place]. Panel Fast 2 Weeks E03.9 - Hypothyroidism, unspecified, E66.01 - Morbid (severe) obesity due to excess calories, I10 - Essential (primary) hypertension, R73.9 - Hyperglycemia, unspecified Hemoglobin A1c 2 Weeks E03.9 - Hypothyroidism, unspecified, E66.01 - Morbid (severe) obesity due to excess calories, I10 - Essential (primary) hypertension, R73.9 - Hyperglycemia, unspecified Lipid Panel 2 Weeks E03.9 - Hypothyroidism, unspecified, E66.01 - Morbid (severe) obesity due to excess calories, I10 - Essential (primary) hypertension, R73.9 - Hyperglycemia, unspecified TSH reflex Free T4 2 Weeks E03.9 - Hypothyroidism, unspecified, E66.01 - Morbid (severe) obesity due to excess calories, I10 - Essential (primary) hypertension, R73.9 - Hyperglycemia, unspecified Medications: New olmesartan 20 mg PO DAILY 90 tabs 3RF Refilled bisoprolol fumarate 5 mg PO DAILY 90 tabs 3RF I10 - Essential (primary) hypertension Discontinued olmesartan Discontinued Reason: Doctor's Order 10 mg (2 x 5 mg) PO DAILY 60 tabs 2RF Coding Level of Care Code Est Pt Level 4 (87865) Diagnoses Morbid obesity E66.01 Hypothyroid E03.9 HTN (hypertension) I10 Hyperglycemia R73.9 PCOS (polycystic ovarian syndrome) E28.2
== END 2023-07-07 11:42 | disposition home or self-care (01) ==
PROVIDERS: PCP Internal Medicine; Visit Provider Internal Medicine
DX: E03.9 Hypothyroidism, unspecified (principal); E66.01 Morbid (severe) obesity due to excess calories; Z68.43 Body mass index [BMI] 50.0-59.9, adult; I10 Essential (primary) hypertension; R73.9 Hyperglycemia, unspecified; E28.2 Polycystic ovarian syndrome
CPT/HCPCS: 99214

== ENCOUNTER 2023-07-19 14:19 | Outpatient (AMB) | payer BC, SELFPAY ==
[2023-07-19 14:25] VITALS: BMI 56.4
--- NOTE | 2023-07-19 14:25 | MHC.AMNUTRGE ---
Intake VS Expanded 07/19/23 14:25 Height 5 ft 7 in Weight 360 lb 3.765 oz BMI 56.4 Intake Visit Reasons: Obesity Allergies No Known Allergies Allergy (Verified 07/07/23 10:56) HPI Nutrition Presentation Details Pt presents for MNT for morbid obesity. Pt reports gradually working on diet modification Water intake , continues to have less than 16oz/d- needs to increase fluids reports including fruits 3/day pastries and similar foods : continues physical activity: once a week , 30-45 min at gym - planning to increase to 2 times/wk Most Recent Diabetes Results: Microalb/Creat Ratio 100.0 ug/mg cr (<30) H 03/25/23 Cholesterol 144 mg/dL (<200) 03/25/23 HDL Cholesterol 36 mg/dL (>40) L 03/25/23 Triglycerides 150 mg/dL (<150) H 03/25/23 Creatinine 0.78 mg/dL (0.5-1.4) 06/05/23 Blood Urea Nitrogen 13 mg/dL (9-16) 06/05/23 Sodium 141 mmol/L (135-145) 06/05/23 Potassium 4.0 mmol/L (3.3-5.1) 06/05/23 Chloride 105 mmol/L (96-108) 06/05/23 Carbon Dioxide 31 mmol/L (22-29) H 06/05/23 Calcium 9.0 mg/dL (8.4-10.2) 06/05/23 AST 21 U/L (5-31) 03/25/23 ALT 25 U/L (0-31) 03/25/23 Total Protein 7.6 g/dL (6.5-8.0) 03/25/23 Albumin 4.2 g/dL (3.5-5.0) 03/25/23 [facility] Medical History (Updated 07/22/23 @ 09:18 by Chloe Bella, RD, LDN) Annual physical exam HTN (hypertension) PCOS (polycystic ovarian syndrome) Hypothyroid Amenorrhea Morbid obesity Menorrhagia Anxiety Family History Father Diabetes mellitus Mother Hypothyroidism Paternal Grandmother Ovarian cancer Paternal Grandfather Diabetes mellitus Social History Housing: House Alcohol intake: current Alcohol intake frequency: holidays/special occasions only Patient Tobacco Use Status: Never used Tobacco e-Cigarette/Vaping Use: Never Used service: No Current occupational status: employed Cognitive needs: No Hearing needs: No Vision needs: Yes Assessment & Plan Assessment & Plan (1) Morbid obesity: Comment: BMI 56.3 (05/19/23) (06/2023), BMI 57. 0 (03/13) , 58.1 (01/11) 58.7/375 lbs (11/2022) Code(s): E66.01 - Morbid (severe) obesity due to excess calories Plan: Resume reducing calories from high fat foods/high sodium foods and engaging in physical activity- goal 1163-0680 calorie meal plan ? Used wt : 163 kg on 01/28/22 , 06/2023 Est kcal as per MSJ: 2810 -250= 2560 (40% carb, 30% fat/prot) Est fluid needs: 4075 ml/d (25 ml/kg bw) Rec fiber: increase to 8-10 g per day and gradually increase to 25 g/d or as tolerated Rec Na: < 2000 mg /d Educate patient on: (R= Reviewed, V = verbalizes understanding N/R= Needs review N/A= not applicable) Reviewed Differences in MACRO Food sources of carbohydrates and serving adequate serving sizes : R V Difference between complex carbohydrates and simple carbohydrates, role of fiber: R Differences between fats (MUFA/PUFA/saturated fats, trans fats) and food sources of various fats: R Food sources of sodium and salt and healthy modifications for heart health and kidney health: R Vitamins and minerals: R How to interpret food labels: R Healthy Plate method concept: R Physical activity: benefits and precaution: R Health risks associated with excess body weight including but not limited to DM, CHD, risks of bone fractures: R, V Patient Instructions: Continue working on reducing salt intake - remember fries, breads pancakes, chips, pastries, all processed foods, cheese, sauces, sodas/dietsodas will have salt added , choose baked potatoes, add herbs for flavor ,vinegar , choose fruits as part of the meal, include salads on a daily basis and vary the vegetables salads Increase on fluids 32 oz /day (water, low sugar beverages with no sodium, read labels choosing no sodium added Coding Level of Care Code Nutr Indiv Subseq (47529) Diagnoses Morbid obesity E66.01 Time Spent (min) 25
== END 2023-07-19 14:57 | disposition home or self-care (01) ==
PROVIDERS: PCP Internal Medicine; Visit Provider Dietitian, Registered
DX: E66.01 Morbid (severe) obesity due to excess calories (principal)

== ENCOUNTER → 2023-07-19 14:19 | Outpatient (BNVA) | payer BC, SELFPAY | PROVIDERS: PCP Internal Medicine; Visit Provider Dietitian, Registered | DX: E66.01 Morbid (severe) obesity due to excess calories (principal); Z68.43 Body mass index [BMI] 50.0-59.9, adult; Z71.3 Dietary counseling and surveillance | CPT/HCPCS: 97803 ==

== ENCOUNTER 2023-07-24 09:15 | Outpatient (REF) | payer BC, SELFPAY ==
[2023-07-24 11:33] LABS: Estimated Average Glucose 111 mg/dL; Hemoglobin A1c % 5.5 % (<6.0)
[2023-07-24 12:15] LABS: Alanine Aminotransferase 20 U/L (0-31); Albumin Level 4.1 g/dL (3.5-5.0); Alkaline Phosphatase 62 U/L (39-117); Anion Gap 14 (12-20); Aspartate Amino Transferase 18 U/L (5-31); Bilirubin Total 0.4 mg/dL (0.0-1.0); Blood Urea Nitrogen 14 mg/dL (9-16); Calcium 9.3 mg/dL (8.4-10.2); Carbon Dioxide 26 mmol/L (22-29); Chloride 104 mmol/L (96-108); Cholesterol 126 mg/dL (<200); Estimated Glomerular Filt Rate > 60; Glucose Fasting 90 mg/dL (60-99); HDL Cholesterol 35 mg/dL (>40); LDL Cholesterol Calculated 70 mg/dL (<100); Potassium 4.2 mmol/L (3.3-5.1); Sodium 140 mmol/L (135-145); Total Protein 7.4 g/dL (6.5-8.0); Triglycerides 105 mg/dL (<150)
[2023-07-24 12:19] LABS: TSH reflex Free T4 2.27 uIU/mL (0.32-4.0)
== END 2023-07-24 09:16 | disposition home or self-care (01) ==
LOC: HO.HMGCLDS 09:15
PROVIDERS: PCP Internal Medicine; Visit Provider Internal Medicine
DX: R73.9 Hyperglycemia, unspecified (principal); E03.9 Hypothyroidism, unspecified; I10 Essential (primary) hypertension; E66.01 Morbid (severe) obesity due to excess calories
CPT/HCPCS: 36415; 80053; 80061; 83036; 84443

== ENCOUNTER 2023-09-16 14:26 | Outpatient (AMB) | payer BC, SELFPAY ==
[2023-09-16 14:29] VITALS: BMI 55.9
--- NOTE | 2023-09-16 14:29 | A.OFFVIS_ITS ---
VS Expanded 09/16/23 14:29 09/16/23 14:49 Height 5 ft 7 in 5 ft 7 in Weight 356 lb 14.854 oz 357 lb BMI 55.9 55.9 Intake Visit Reasons: Obesity/CONFIRMED Allergies No Known Allergies Allergy (Verified 09/20/23 11:11) Nutrition Presentation Details: Pt presents for MNT f/u morbid obesity Pt reports participating at the gym twice -3 times increasing on water 16 oz and seltzer water with a meal BS Monitoring Most Recent Diabetes Results: Cholesterol 126 mg/dL (<200) 07/24/23 HDL Cholesterol 35 mg/dL (>40) L 07/24/23 Triglycerides 105 mg/dL (<150) 07/24/23 Creatinine 0.69 mg/dL (0.5-1.4) 07/24/23 Blood Urea Nitrogen 14 mg/dL (9-16) 07/24/23 Sodium 140 mmol/L (135-145) 07/24/23 Potassium 4.2 mmol/L (3.3-5.1) 07/24/23 Chloride 104 mmol/L (96-108) 07/24/23 Carbon Dioxide 26 mmol/L (22-29) 07/24/23 Calcium 9.3 mg/dL (8.4-10.2) 07/24/23 AST 18 U/L (5-31) 07/24/23 ALT 20 U/L (0-31) 07/24/23 Total Protein 7.4 g/dL (6.5-8.0) 07/24/23 Albumin 4.1 g/dL (3.5-5.0) 07/24/23 PRO-Zcjialk-Cg.Jeor Equation Height: 5 ft 7 in Weight: 357 lb Resting Metabolic Rate: 2323.53 Calculated Activity Level: Sedentary Calories Needed to Maintain Weight: 2788.24 [facility] Medical History (Updated 09/20/23 @ 11:59 by Angélica Ford MD) Annual physical exam HTN (hypertension) PCOS (polycystic ovarian syndrome) Hypothyroid Amenorrhea Morbid obesity Menorrhagia Anxiety Surgical History Hx of tonsillectomy Family History Father Diabetes mellitus Mother Hypothyroidism Paternal Grandmother Ovarian cancer Paternal Grandfather Diabetes mellitus Social History Housing: House Alcohol intake: current Alcohol intake frequency: holidays/special occasions only Patient Tobacco Use Status: Never used Tobacco e-Cigarette/Vaping Use: Never Used service: No Current occupational status: employed Cognitive needs: No Hearing needs: No Vision needs: Yes Assessment & Plan Assessment & Plan (1) Morbid obesity: Comment: BMI 56.3 (05/19/23) (06/2023), BMI 57. 0 (03/13) , 58.1 (01/11) 58.7/375 lbs (11/2022) , 55.9 (08/2023) Code(s): E66.01 - Morbid (severe) obesity due to excess calories Category: Medical Plan: 500 Calorie reduction per day from high fat foods/high sodium foods and engaging in physical activity- goal 3073-8415 calorie meal plan ? Used wt : 162kg on 08/2023 Est kcal as per MSJ: 2788 (40% carb, 30% fat/prot) Est fluid needs: 4075 ml/d (25 ml/kg bw) about 16 cups/day Rec fiber: increase to 8-10 g per day and gradually increase to 25 g/d or as tolerated Rec Na: < 2000 mg /d Educate patient on: (R= Reviewed, V = verbalizes understanding N/R= Needs review N/A= not applicable) Reviewed Differences in MACRO * Food sources of carbohydrates and serving adequate serving sizes : R V * Difference between complex carbohydrates and simple carbohydrates, role of fiber: R * Differences between fats (MUFA/PUFA/saturated fats, trans fats) and food sources of various fats: R * Food sources of sodium and salt and healthy modifications for heart health and kidney health: R * Vitamins and minerals: R * How to interpret food labels: R * Healthy Plate method concept: R * Physical activity: benefits and precaution: R * Health risks associated with excess body weight including but not limited to DM, CHD, risks of bone fractures: R, V Patient Instructions: track your total caloric intake ( by entering all foods/beverages/sauces/sweets ), reduce by 500 from empty calorie foods (high fat/salt) Continue working on increasing fluid intake (choose low sugar) and reducing on sugars (pastries and similar foods) Coding Level of Care Code Nutr Indiv Subseq (04529) Diagnoses Morbid obesity E66.01 Time Spent (min) 20
[2023-09-22 13:59] VITALS: BMI 55.9
== END 2023-09-16 14:49 | disposition home or self-care (01) ==
PROVIDERS: PCP Internal Medicine; Visit Provider Dietitian, Registered
DX: E66.01 Morbid (severe) obesity due to excess calories (principal)

== ENCOUNTER → 2023-09-16 14:26 | Outpatient (BNVA) | payer BC, SELFPAY | PROVIDERS: PCP Internal Medicine; Visit Provider Dietitian, Registered | DX: E66.01 Morbid (severe) obesity due to excess calories (principal); Z68.43 Body mass index [BMI] 50.0-59.9, adult; Z71.3 Dietary counseling and surveillance | CPT/HCPCS: 97803 ==

== ENCOUNTER 2023-09-20 11:09 | Outpatient (AMB) | payer BC, SELFPAY ==
--- NOTE | 2023-09-20 11:10 | A.OFFPC_ITS ---
Vital Signs 09/20/23 11:11 Height 5 ft 7 in Weight 356 lb BMI 55.8 BP 136/82 Blood Pressure Location Lt brachial Position Sitting Pulse 79 Pulse Source Pulse Oximeter Pulse Oximetry (%) 99 Oxygen Delivery Method Room Air Intake Visit Reasons: 3M DM F/U Intake Note: Pt is here today for 3 months follow up visit. Allergies No Known Allergies Allergy (Verified 09/20/23 11:11) Medication List - Last Reconciled 09/20/23 by Angélica Ford MD bisoprolol fumarate 5 mg PO DAILY flu vac qs 2019(4 yr up)CD(PF) mL IM levothyroxine 88 mcg PO DAILY metformin ER 2,000 mg (4 x 500 mg) PO DAILY olmesartan 5 mg PO DAILY olmesartan 20 mg PO DAILY sertraline 50 mg PO DAILY Tobacco use date assessed: 09/20/23 Dental Screening Dental Screen Date: 03/25/23 HPI 3M DM F/U HPI Details Patient presents for the follow-up on hypertension hypothyroidism and PCOS. FOR[facility]LY [facility] Medical History (Updated 09/20/23 @ 11:59 by Angélica Ford MD) Annual physical exam HTN (hypertension) PCOS (polycystic ovarian syndrome) Hypothyroid Amenorrhea Morbid obesity Menorrhagia Anxiety Surgical History Hx of tonsillectomy Family History Father Diabetes mellitus Mother Hypothyroidism Paternal Grandmother Ovarian cancer Paternal Grandfather Diabetes mellitus Social History Housing: House Alcohol intake: current Alcohol intake frequency: holidays/special occasions only Patient Tobacco Use Status: Never used Tobacco e-Cigarette/Vaping Use: Never Used service: No Current occupational status: employed Cognitive needs: No Hearing needs: No Vision needs: Yes Questionnaire Thrive Questionnaire Date Thrive assessed: 03/24/22 PRO-7 AMB Questionnaire PRO-7 Date PRO - 7 assessed: 03/24/22 Source: Developed by Drs. Billy Emery, Rowena De La Cruz, Soy Griggs and colleagues, with an educational loraine from [employer]. Review of Systems Const All systems reviewed & are unremarkable except as noted in HPI and below Eyes Reports no additional complaints ENT Reports no additional complaints Card Reports no additional complaints Resp Reports no additional complaints GI Reports no additional complaints Reports no additional complaints Physical exam (Primary Care) Vital Signs: Last Vital Signs Pulse 79 09/20/23 11:11 BP 136/82 09/20/23 11:11 Pulse Ox 99 09/20/23 11:11 Oxygen Delivery Method Room Air 09/20/23 11:11 BMI result Body Mass Index 55.8 Tobacco/Smoking Status: Tobacco use Status Tobacco use date assessed 09/20/23 09/20/23 11:17 Patient Tobacco Use Status Never used Tobacco 09/20/23 11:17 e-Cigarette/Vaping Use Never Used 09/20/23 11:17 Thrive Assessment: Date of Thrive Assessment Date Thrive assessed 03/24/22 09/20/23 11:17 Const General: no acute distress HENMT Head: Yes normal to inspection Ears: hearing grossly normal bilaterally Throat: Yes posterior oropharynx normal Eyes General: appearance normal, both eyes and all related structures Resp Effort & Inspection: normal respiratory effort Auscultation: clear to auscultation bilaterally Cardio Rhythm: regular rhythm Heart sounds: S1 normal heart sound present and S2 normal heart sound present GI Inspection: Yes normal to inspection Palpation (GI): Soft to palpation Assessment and Plan Assessment & Plan (1) Allergies: Code(s): T78.40XA - Allergy, unspecified, initial encounter 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 0 (03/13) , 58.1 (01/11) 58.7/375 lbs (11/2022) , 55.9 (08/2023) Code(s): E66.01 - Morbid (severe) obesity due to excess calories Plan: Follow-up with sports centre manager increase physical activity decrease caloric intake (3) Hypothyroid: Code(s): E03.9 - Hypothyroidism, unspecified Plan: Continue levothyroxine (4) HTN (hypertension): Code(s): I10 - Essential (primary) hypertension Plan: Add 5 mg of olmesartan to 20 mg continue bisoprolol (5) Hyperglycemia: Code(s): R73.9 - Hyperglycemia, unspecified Plan: Monitor A1c (6) PCOS (polycystic ovarian syndrome): Comment: on Metformin f/u [facility] product management consultant Code(s): E28.2 - Polycystic ovarian syndrome Plan: Continue metformin Orders: Orders Hemoglobin A1c 3 Months E03.9 - Hypothyroidism, unspecified, E66.01 - Morbid (severe) obesity due to excess calories, I10 - Essential (primary) hypertension, R73.9 - Hyperglycemia, unspecified Microalbumin, Random (w Creat) 3 Months E03.9 - Hypothyroidism, unspecified, E66.01 - Morbid (severe) obesity due to excess calories, I10 - Essential (primary) hypertension, R73.9 - Hyperglycemia, unspecified Comprehensive [place]. Panel Fast 3 Months E03.9 - Hypothyroidism, unspecified, E66.01 - Morbid (severe) obesity due to excess calories, I10 - Essential (primary) hypertension, R73.9 - Hyperglycemia, unspecified Complete Blood Count Auto Diff 3 Months E03.9 - Hypothyroidism, unspecified, E66.01 - Morbid (severe) obesity due to excess calories, I10 - Essential (primary) hypertension, R73.9 - Hyperglycemia, unspecified Referrals Allergy & Immunology Referral T78.40XA - Allergy, unspecified, initial encounter Medications: New olmesartan take with Olmesartan 20 mg 5 mg PO DAILY 90 tabs 1RF Coding Level of Care Code Est Pt Level 4 (01928) Diagnoses Allergies T78.40XA Morbid obesity E66.01 Hypothyroid E03.9 HTN (hypertension) I10 Hyperglycemia R73.9 PCOS (polycystic ovarian syndrome) E28.2
[2023-09-20 11:11] VITALS: BP 136/82; PULSE 79; O2SAT 99; BMI 55.8
== END 2023-09-20 12:04 | disposition home or self-care (01) ==
PROVIDERS: PCP Internal Medicine; Visit Provider Internal Medicine
DX: T78.40XA Allergy, unspecified, initial encounter (principal); E66.01 Morbid (severe) obesity due to excess calories; E03.9 Hypothyroidism, unspecified; Z68.43 Body mass index [BMI] 50.0-59.9, adult; I10 Essential (primary) hypertension; R73.9 Hyperglycemia, unspecified; E28.2 Polycystic ovarian syndrome
CPT/HCPCS: 99214

== ENCOUNTER 2023-10-26 13:43 | Outpatient (AMB) | payer BC, SELFPAY ==
[2023-10-26 14:01] VITALS: BMI 56.3
--- NOTE | 2023-10-26 14:01 | A.OFFVIS_ITS ---
VS Expanded 10/26/23 14:01 Height 5 ft 7 in Weight 359 lb 12.71 oz BMI 56.3 Intake Visit Reasons: Obesity Allergies No Known Allergies Allergy (Verified 09/20/23 11:11) Nutrition Presentation Details: Pt presents for MNT f/u for obesity Pt reports working on keeping track of calories , 2300- 2500 calories/day, tracking consistently Incorporating a variety of foods and trying new foods choosing fiber rich foods BS Monitoring Most Recent Diabetes Results: Cholesterol 126 mg/dL (<200) 07/24/23 HDL Cholesterol 35 mg/dL (>40) L 07/24/23 Triglycerides 105 mg/dL (<150) 07/24/23 Creatinine 0.69 mg/dL (0.5-1.4) 07/24/23 Blood Urea Nitrogen 14 mg/dL (9-16) 07/24/23 Sodium 140 mmol/L (135-145) 07/24/23 Potassium 4.2 mmol/L (3.3-5.1) 07/24/23 Chloride 104 mmol/L (96-108) 07/24/23 Carbon Dioxide 26 mmol/L (22-29) 07/24/23 Calcium 9.3 mg/dL (8.4-10.2) 07/24/23 AST 18 U/L (5-31) 07/24/23 ALT 20 U/L (0-31) 07/24/23 Total Protein 7.4 g/dL (6.5-8.0) 07/24/23 Albumin 4.1 g/dL (3.5-5.0) 07/24/23 [facility] Medical History (Updated 11/08/23 @ 10:[address], LDN) Annual physical exam HTN (hypertension) PCOS (polycystic ovarian syndrome) Hypothyroid Amenorrhea Morbid obesity Menorrhagia Anxiety Surgical History Hx of tonsillectomy Family History Father Diabetes mellitus Mother Hypothyroidism Paternal Grandmother Ovarian cancer Paternal Grandfather Diabetes mellitus Social History Housing: House Alcohol intake: current Alcohol intake frequency: holidays/special occasions only Patient Tobacco Use Status: Never used Tobacco e-Cigarette/Vaping Use: Never Used service: No Current occupational status: employed Cognitive needs: No Hearing needs: No Vision needs: Yes Assessment & Plan Assessment & Plan (1) Morbid obesity: Comment: 56.4 (10/2023) BMI 56.3 (05/19/23) (06/2023), BMI 57. 0 (03/13) , 58.1 (01/11) 58.7/375 lbs (11/2022) Code(s): E66.01 - Morbid (severe) obesity due to excess calories Category: Medical Plan: 500 Calorie reduction per day from empty calorie foods /high sodium foods and engaging in physical activity- goal [id number] calorie/day meal plan ? Used wt : 162kg on 08/2023 Est kcal as per MSJ: 2788 (40% carb, 30% fat/prot) Est fluid needs: 4075 ml/d (25 ml/kg bw) about 16 cups/day Rec fiber: increase to 8-10 g per day and gradually increase to 25 g/d or as tolerated Rec Na: < 2000 mg /d Educate patient on: (R= Reviewed, V = verbalizes understanding N/R= Needs review N/A= not applicable) Reviewed Differences in MACRO * Food sources of carbohydrates and serving adequate serving sizes : R V * Difference between complex carbohydrates and simple carbohydrates, role of fiber: R * Differences between fats (MUFA/PUFA/saturated fats, trans fats) and food sources of various fats: R * Food sources of sodium and salt and healthy modifications for heart health and kidney health: R * Vitamins and minerals: R * How to interpret food labels: R * Healthy Plate method concept: R * Physical activity: benefits and precaution: R * Health risks associated with excess body weight including but not limited to DM, CHD, risks of bone fractures: R, V Patient Instructions: Engage in physical activity gradually to goal 30 minutes daily Continue keeping track of calories to 2500 per day, following healthy plate method Choose foods lower in salt and be mindful of high salt foods likes pastries/highly processed foods Coding Level of Care Code Nutr Indiv Subseq (18303) Diagnoses Morbid obesity E66.01 Time Spent (min) 20
== END 2023-10-26 14:35 | disposition home or self-care (01) ==
PROVIDERS: PCP Internal Medicine; Visit Provider Dietitian, Registered
DX: E66.01 Morbid (severe) obesity due to excess calories (principal)

== ENCOUNTER → 2023-10-26 13:43 | Outpatient (BNVA) | payer BC, SELFPAY | PROVIDERS: PCP Internal Medicine; Visit Provider Dietitian, Registered | DX: E66.01 Morbid (severe) obesity due to excess calories (principal); Z68.43 Body mass index [BMI] 50.0-59.9, adult; Z71.3 Dietary counseling and surveillance | CPT/HCPCS: 97803 ==

== ENCOUNTER 2023-12-25 09:10 | Outpatient (REF) | payer BC, SELFPAY ==
[2023-12-25 10:59] LABS: MANUAL DIFF FLAG NO
[2023-12-25 11:20] LABS: Basophils Absolute Auto 0.1 X10*3/uL (0.0-0.2); Basophils Percent Auto 0.9 % (0-2); Eosinophils Absolute Auto 0.2 X10*3/uL (0.0-0.4); Eosinophils Percent Auto 2.7 % (0-4); Hematocrit 39.7 % (37.0-47.0); Hemoglobin 13.2 g/dl (12.0-16.0); Imm Gran Abs Auto 0.02 X10*3/uL (0.00-0.03); Imm Gran Pct Auto 0.3 % (0.0-0.4); Lymphocytes Absolute Auto 1.9 X10*3/uL (1.2-4.9); Lymphocytes Percent Auto 32.1 % (20-40); Mean Corpuscular HGB Conc 33.2 g/dl (31.0-35.0); Mean Corpuscular Hemoglobin 30.6 pg (27.0-33.0); Mean Corpuscular Volume 91.9 fL (80.0-98.0); Mean Platelet Volume 9.5 fL (9.4-12.3); Monocytes Absolute Auto 0.4 X10*3/uL (0.1-1.2); Monocytes Percent Auto 6.3 % (2-11); Neutrophils Absolute Auto 3.4 x10*3/uL (2.0-8.3); Neutrophils Percent Auto 57.7 % (45-73); Platelet Count 275 X10*3/uL (160-400); Red Blood Count 4.32 X10*6/uL (4.20-5.50); Red Cell Distribution Width 12.7 % (11.0-16.0); White Blood Count 5.9 X10*3/uL (4.8-10.8)
[2023-12-25 11:44] LABS: Alanine Aminotransferase 19 U/L (0-31); Albumin Level 3.9 g/dL (3.5-5.0); Alkaline Phosphatase 65 U/L (39-117); Anion Gap 10 (12-20); Aspartate Amino Transferase 16 U/L (5-31); Bilirubin Total 0.3 mg/dL (0.0-1.0); Blood Urea Nitrogen 13 mg/dL (9-16); Calcium 8.6 mg/dL (8.4-10.2); Carbon Dioxide 28 mmol/L (22-29); Chloride 106 mmol/L (96-108); Estimated Glomerular Filt Rate > 60; Glucose Fasting 105 mg/dL (60-99); Potassium 4.2 mmol/L (3.3-5.1); Sodium 140 mmol/L (135-145)
[2023-12-25 12:14] LABS: Creatinine Urine 95.41 mg/dL; Microalbum/Creatinine Ratio Ur 58.6 ug/mg cr (<30)
[2023-12-25 13:06] LABS: Estimated Average Glucose 114 mg/dL; Hemoglobin A1C 126.8438 umol/L; Hemoglobin A1c % 5.6 % (<6.0); Total Hemoglobin (HGBA1C) 3413.2248 umol/L
== END 2023-12-25 09:11 | disposition home or self-care (01) ==
LOC: HO.HMGCLDS 09:10
PROVIDERS: PCP Internal Medicine; Visit Provider Internal Medicine
DX: E03.9 Hypothyroidism, unspecified (principal); E66.01 Morbid (severe) obesity due to excess calories; I10 Essential (primary) hypertension; R73.9 Hyperglycemia, unspecified
CPT/HCPCS: 36415; 80053; 82043; 82570; 83036; 85025

== ENCOUNTER 2023-12-27 10:51 | Outpatient (AMB) | payer BC, SELFPAY ==
[2023-12-27 11:35] VITALS: BP 128/82; PULSE 71; O2SAT 97; BMI 56.2
--- NOTE | 2023-12-27 11:35 | MHC.PC.OV ---
Vital Signs 12/27/23 11:35 Height 5 ft 7 in Weight 359 lb BMI 56.2 BP 128/82 Blood Pressure Location Lt brachial Position Sitting Pulse 71 Pulse Source Pulse Oximeter Pulse Oximetry (%) 97 Oxygen Delivery Method Room Air Intake Visit Reasons: 3M DM F/U Intake Note: Pt is here today for 3 months follow up visit on DM and labs. Allergies No Known Allergies Allergy (Verified 12/27/23 11:37) Medication List - Last Reconciled 12/27/23 by Angélica Ford MD bisoprolol fumarate 5 mg PO DAILY flu vac qs 2019(4 yr up)CD(PF) mL IM levothyroxine 88 mcg PO DAILY metformin ER 2,000 mg (4 x 500 mg) PO DAILY olmesartan 5 mg PO DAILY olmesartan 20 mg PO DAILY sertraline 50 mg PO DAILY Tobacco use date assessed: 12/27/23 Dental Screening Dental Screen Date: 03/25/23 HPI 3M DM F/U HPI Details Patient presents for the follow-up on hypertension hypothyroidism hyperglycemia and microalbuminuria. She has been trying to lose weight, decreasing caloric intake exercising regularly for over 6 months unsuccessfully. [facility] Medical History (Updated 11/08/23 @ 10:[address], LDN) Annual physical exam HTN (hypertension) PCOS (polycystic ovarian syndrome) Hypothyroid Amenorrhea Morbid obesity Menorrhagia Anxiety Surgical History Hx of tonsillectomy Family History Father Diabetes mellitus Mother Hypothyroidism Paternal Grandmother Ovarian cancer Paternal Grandfather Diabetes mellitus Social History Housing: House Alcohol intake: current Alcohol intake frequency: holidays/special occasions only Patient Tobacco Use Status: Never used Tobacco e-Cigarette/Vaping Use: Never Used service: No Current occupational status: employed Cognitive needs: No Hearing needs: No Vision needs: Yes Questionnaire PHQ-9 Over the last 2 weeks, how often have you been bothered by any of the following problems? 1. Little interest or pleasure in doing things: not at all 2. Feeling down, depressed, or hopeless: not at all 3. Trouble falling or staying asleep, or sleeping too much: not at all 4. Feeling tired or having little energy: not at all 5. Poor appetite or overeating: not at all 6. Feeling bad about yourself - or that you are a failure or have let yourself or your family down: not at all 7. Trouble concentrating on things, such as reading the newspaper or watching television: not at all 8. Moving or speaking so slowly that other people could have noticed. Or the opposite - being so fidgety or restless that you have been moving around a lot more than usual: not at all 9. Thoughts that you would be better off or of hurting yourself in some way: not at all Total score: 0 Depression Screening Interpretation: Negative Depression Screening Done: Yes 86273 - PHQ-9 Billing: Yes Source: Developed by Drs. Billy Emery, Rowena De La Cruz, Soy Griggs and colleagues, with an educational loraine from [employer]. Thrive Questionnaire Date Thrive assessed: 12/27/23 I am a: Patient What is your living situation today?: I have a steady place to live Within the past 12 months, did the food you bought not last and you didn't have the money to get more?: Never true Within the past 12 months, did you worry whether your food would run out before you got money to buy more?: Never true Do you have trouble paying for medicines?: No Do you have trouble getting transportation to medical appointments?: No Do you have trouble paying your heating and electricity bill?: No Do you have trouble taking care of your child, family member or friend?: No Do you have trouble with day-to-day activities such as bathing, preparing meals, shopping, managing finances, etc.?: No Are you currently unemployed and looking for a job?: No Are you interested in more education?: No Please select the resources that you would like help with: None Currently or been in a relationship where the following occur: No concerns reported THRIVE Score: 0 AUDIT C Alcohol Use Questionnaire (AUDIT-C) 1. How often do you have a drink containing alcohol?: Monthly or less 2. How many drinks containing alcohol do you have on a typical day when you are drinking?: 1 or 2 3. How often do you have six or more drinks on one occasion?: Less than monthly Total Score: 2 PRO-7 AMB Questionnaire PRO-7 Date PRO - 7 assessed: 12/27/23 Feeling nervous, anxious, or on edge: 0 = Not at all Not being able to stop or control worryin = Not at all Worrying too much about different things: 0 = Not at all Trouble relaxin = Not at all Being so restless that it is hard to sit still: 0 = Not at all Becoming easily annoyed or irritable: 0 = Not at all Feeling afraid as if something awful might happen: 0 = Not at all Total PRO-7 score (0-4 normal; 5-9 mild; 10-14 moderate; 15-21 severe): 0 Source: Developed by Drs. Billy Emery, Rowena De La Cruz, Soy Griggs and colleagues, with an educational loraine from [employer]. PRO-7 Assessment Billing PRO-7 Assessment Tool: PRO-7 Assessment 83024 Review of Systems Const All systems reviewed & are unremarkable except as noted in HPI and below Card Reports no additional complaints Resp Reports no additional complaints GI Reports no additional complaints Physical exam (Primary Care) Vital Signs: Last Vital Signs Pulse 71 12/27/23 11:35 BP 128/82 12/27/23 11:35 Pulse Ox 97 12/27/23 11:35 Oxygen Delivery Method Room Air 12/27/23 11:35 BMI result Body Mass Index 56.2 Tobacco/Smoking Status: Tobacco use Status Tobacco use date assessed 12/27/23 12/27/23 11:41 Patient Tobacco Use Status Never used Tobacco 12/27/23 11:35 e-Cigarette/Vaping Use Never Used 12/27/23 11:35 PHQ-9: PHQ-9 Score PHQ-9: Total score 0 12/27/23 11:41 Depression Screening Interpretation: Negative Thrive Assessment: Date of Thrive Assessment Date Thrive assessed 12/27/23 12/27/23 11:41 Currently or been in a relationship where the following occur: No concerns reported Const General: no acute distress HENMT Throat: Yes posterior oropharynx normal Resp Effort & Inspection: normal respiratory effort Auscultation: clear to auscultation bilaterally Cardio Rhythm: regular rhythm Heart sounds: S1 normal heart sound present and S2 normal heart sound present GI Inspection: Yes normal to inspection Palpation (GI): Soft to palpation Coding Level of Care Code Est Pt Level 4 (18661) Diagnoses Hyperglycemia R73.9 Proteinuria R80.9 Hypothyroid E03.9 Morbid obesity E66.01 HTN (hypertension) I10 Additional Codes PRO-7 Assessment Billing - PRO-7 Assessment Tool: PRO-7 Assessment [id number] ([id number]) Assessment & Plan Assessment & Plan (1) Hyperglycemia: Code(s): R73.9 - Hyperglycemia, unspecified Category: Medical Plan: A1c is 5.6. ADA diet regular physical activity weight loss discussed with the patient. Continue metformin (2) Proteinuria: Code(s): R80.9 - Proteinuria, unspecified Category: Medical Plan: Improving with increasing dose of olmesartan, increase olmesartan to 30 mg a day (3) Hypothyroid: Code(s): E03.9 - Hypothyroidism, unspecified Category: Medical Plan: Continue levothyroxine (4) Morbid obesity: Comment: 56.4 (10/2023) BMI 56.3 (05/19/23) (06/2023), BMI 57. 0 (03/13) , 58.1 (01/11) 58.7/375 lbs (11/2022) Code(s): E66.01 - Morbid (severe) obesity due to excess calories Category: Medical Plan: To facilitate weight loss in addition to lower caloric intake regular physical activity Zepbound 2.5 mg for the 1st month then increase as tolerated will be started. Patient will follow-up as needed or for physical in 3 months (5) HTN (hypertension): Code(s): I10 - Essential (primary) hypertension Category: Medical Plan: Increase olmesartan to 30 mg a day and continue Bisoprolol Orders: Orders Lipid Panel 3 Months E03.9 - Hypothyroidism, unspecified, E66.01 - Morbid (severe) obesity due to excess calories, I10 - Essential (primary) hypertension, R73.9 - Hyperglycemia, unspecified, R80.9 - Proteinuria, unspecified Hemoglobin A1c 3 Months E03.9 - Hypothyroidism, unspecified, E66.01 - Morbid (severe) obesity due to excess calories, I10 - Essential (primary) hypertension, R73.9 - Hyperglycemia, unspecified, R80.9 - Proteinuria, unspecified TSH reflex Free T4 3 Months E03.9 - Hypothyroidism, unspecified, E66.01 - Morbid (severe) obesity due to excess calories, I10 - Essential (primary) hypertension, R73.9 - Hyperglycemia, unspecified, R80.9 - Proteinuria, unspecified Comprehensive [place]. Panel Fast 3 Months E03.9 - Hypothyroidism, unspecified, E66.01 - Morbid (severe) obesity due to excess calories, I10 - Essential (primary) hypertension, R73.9 - Hyperglycemia, unspecified, R80.9 - Proteinuria, unspecified Complete Blood Count Auto Diff 3 Months E03.9 - Hypothyroidism, unspecified, E66.01 - Morbid (severe) obesity due to excess calories, I10 - Essential (primary) hypertension, R73.9 - Hyperglycemia, unspecified, R80.9 - Proteinuria, unspecified Microalbumin, Random (w Creat) 3 Months E03.9 - Hypothyroidism, unspecified, E66.01 - Morbid (severe) obesity due to excess calories, I10 - Essential (primary) hypertension, R73.9 - Hyperglycemia, unspecified, R80.9 - Proteinuria, unspecified Medications: New Zepbound (tirzepatide (weight loss)) for 4 weeks 2.5 mg (0.5 mL) subcut QWEEK 2 mL 1RF NS Changed From olmesartan take with Olmesartan 20 mg 5 mg PO DAILY 90 tabs 1RF To olmesartan take with Olmesartan 20 mg 10 mg (2 x 5 mg) PO DAILY 180 tabs 1RF
== END 2023-12-27 12:18 | disposition home or self-care (01) ==
PROVIDERS: PCP Internal Medicine; Visit Provider Internal Medicine
DX: R73.9 Hyperglycemia, unspecified (principal); E66.813 Obesity, class 3; Z68.43 Body mass index [BMI] 50.0-59.9, adult; R80.9 Proteinuria, unspecified; E03.9 Hypothyroidism, unspecified; I10 Essential (primary) hypertension

== ENCOUNTER → 2023-12-27 10:51 | Outpatient (BNVA) | payer BC, SELFPAY | PROVIDERS: PCP Internal Medicine; Visit Provider Internal Medicine | DX: R73.9 Hyperglycemia, unspecified (principal); R80.9 Proteinuria, unspecified; E03.9 Hypothyroidism, unspecified; E66.01 Morbid (severe) obesity due to excess calories; Z68.43 Body mass index [BMI] 50.0-59.9, adult; I10 Essential (primary) hypertension; Z79.84 Long term (current) use of oral hypoglycemic drugs; Z79.899 Other long term (current) drug therapy; Z71.3 Dietary counseling and surveillance | CPT/HCPCS: 96127; 97803 ==

== ENCOUNTER 2023-12-27 13:25 | Outpatient (AMB) | payer BC, SELFPAY ==
--- NOTE | 2023-12-27 14:10 | A.OFFVIS_ITS ---
VS Expanded 12/27/23 12:27 Weight 359 lb Intake Visit Reasons: Obesity/LVM Allergies No Known Allergies Allergy (Verified 12/27/23 11:37) Nutrition Presentation Details: Pt presents for MNT f/u for morbid obesity * fluid intake 16 oz/d or less * working on keeping physical active 30 min twice a week * reports on choosing fiber rich foods BS Monitoring Most Recent Diabetes Results: Microalb/Creat Ratio 58.6 ug/mg cr (<30) H 12/25/23 Cholesterol 126 mg/dL (<200) 07/24/23 HDL Cholesterol 35 mg/dL (>40) L 07/24/23 Triglycerides 105 mg/dL (<150) 07/24/23 Creatinine 0.76 mg/dL (0.5-1.4) 12/25/23 Blood Urea Nitrogen 13 mg/dL (9-16) 12/25/23 Sodium 140 mmol/L (135-145) 12/25/23 Potassium 4.2 mmol/L (3.3-5.1) 12/25/23 Chloride 106 mmol/L (96-108) 12/25/23 Carbon Dioxide 28 mmol/L (22-29) 12/25/23 Calcium 8.6 mg/dL (8.4-10.2) 12/25/23 AST 16 U/L (5-31) 12/25/23 ALT 19 U/L (0-31) 12/25/23 Total Protein 7.0 g/dL (6.5-8.0) 12/25/23 Albumin 3.9 g/dL (3.5-5.0) 12/25/23 [facility] Medical History (Updated 12/30/23 @ 12:28 by Chloe Bella, RD, LDN) Annual physical exam HTN (hypertension) PCOS (polycystic ovarian syndrome) Hypothyroid Amenorrhea Morbid obesity Menorrhagia Anxiety Surgical History Hx of tonsillectomy Family History Father Diabetes mellitus Mother Hypothyroidism Paternal Grandmother Ovarian cancer Paternal Grandfather Diabetes mellitus Social History Housing: House Alcohol intake: current Alcohol intake frequency: holidays/special occasions only Patient Tobacco Use Status: Never used Tobacco e-Cigarette/Vaping Use: Never Used service: No Current occupational status: employed Cognitive needs: No Hearing needs: No Vision needs: Yes Assessment & Plan Assessment & Plan (1) Morbid obesity: Comment: 56.4 (10/2023) BMI 58.7/375 lbs (11/2022) Code(s): E66.01 - Morbid (severe) obesity due to excess calories Category: Medical Plan: Used wt : 162kg on 08/2023 Est kcal as per MSJ: 2788 (40% carb, 30% fat/prot) Est fluid needs: 4075 ml/d (25 ml/kg bw) about 16 cups/day Rec fiber: increase to 8-10 g per day and gradually increase to 25 g/d or as tolerated Rec Na: < 2000 mg /d Educate patient on: (R= Reviewed, V = verbalizes understanding N/R= Needs review N/A= not applicable) Reviewed Differences in MACRO * Food sources of carbohydrates and serving adequate serving sizes : R V * Difference between complex carbohydrates and simple carbohydrates, role of fiber: R * Differences between fats (MUFA/PUFA/saturated fats, trans fats) and food sources of various fats: R * Food sources of sodium and salt and healthy modifications for heart health and kidney health: R * Vitamins and minerals: R * How to interpret food labels: R * Healthy Plate method concept: R * Physical activity: benefits and precaution: R * Health risks associated with excess body weight including but not limited to DM, CHD, risks of bone fractures: R, V Patient Instructions: Increase water to 32 oz d/ay and reduce on caffeine beverages to 2 cups /day or less Maintain physically active daily 30 minutes daily Coding Level of Care Code Nutr Indiv Subseq (34513) Diagnoses Morbid obesity E66.01 Time Spent (min) 15
== END 2023-12-27 14:35 | disposition home or self-care (01) ==
PROVIDERS: PCP Internal Medicine; Visit Provider Dietitian, Registered
DX: E66.01 Morbid (severe) obesity due to excess calories (principal)

== ENCOUNTER 2024-04-19 13:17 | Outpatient (AMB) | payer BC, SELFPAY ==
[2024-04-19 13:31] VITALS: BMI 52.4
--- NOTE | 2024-04-19 13:31 | A.OFFVIS_ITS ---
VS Expanded 04/19/24 13:31 Height 5 ft 7 in Weight 334 lb 7.06 oz BMI 52.4 Intake Visit Reasons: Obesity/IFG Allergies No Known Allergies Allergy (Verified 12/27/23 11:37) Nutrition Presentation Details: Pt presents for MNT f/u for obesity Pt reports taking zepbound and feeling comfortable with weight loss Reports having 2-3 meals/day and working on reducing on [employer] food frequency fruits: 0-1/d ve-3 serving/d dairy 3-4 /day starches >20 protein foods: poultry/cheese/beef/seafood physical activity: has gym membership, has stopped related to caring for new born (adopted child ) BS Monitoring Most Recent Diabetes Results: Microalb/Creat Ratio 58.6 ug/mg cr (<30) H 12/25/23 Cholesterol 126 mg/dL (<200) 07/24/23 HDL Cholesterol 35 mg/dL (>40) L 07/24/23 Triglycerides 105 mg/dL (<150) 07/24/23 Creatinine 0.76 mg/dL (0.5-1.4) 12/25/23 Blood Urea Nitrogen 13 mg/dL (9-16) 12/25/23 Sodium 140 mmol/L (135-145) 12/25/23 Potassium 4.2 mmol/L (3.3-5.1) 12/25/23 Chloride 106 mmol/L (96-108) 12/25/23 Carbon Dioxide 28 mmol/L (22-29) 12/25/23 Calcium 8.6 mg/dL (8.4-10.2) 12/25/23 AST 16 U/L (5-31) 12/25/23 ALT 19 U/L (0-31) 12/25/23 Total Protein 7.0 g/dL (6.5-8.0) 12/25/23 Albumin 3.9 g/dL (3.5-5.0) 12/25/23 [facility] Medical History (Updated 12/30/23 @ 12:28 by Chloe Bella, RD, LDN) Annual physical exam HTN (hypertension) PCOS (polycystic ovarian syndrome) Hypothyroid Amenorrhea Morbid obesity Menorrhagia Anxiety Surgical History Hx of tonsillectomy Family History Father Diabetes mellitus Mother Hypothyroidism Paternal Grandmother Ovarian cancer Paternal Grandfather Diabetes mellitus Social History Housing: House Alcohol intake: current Alcohol intake frequency: holidays/special occasions only Patient Tobacco Use Status: Never used Tobacco e-Cigarette/Vaping Use: Never Used service: No Current occupational status: employed Cognitive needs: No Hearing needs: No Vision needs: Yes Assessment & Plan Assessment & Plan (1) Morbid obesity: Comment: 56.4 (10/2023) BMI 58.7/375 lbs (11/2022) Code(s): E66.01 - Morbid (severe) obesity due to excess calories Category: Medical Plan: Used wt : 162kg on 08/2023 , 151 kg (05/16) Est kcal as per MSJ: 2788 (40% carb, 30% fat/prot) Est fluid needs: 4075 ml/d (25 ml/kg bw) about 16 cups/day Rec fiber: increase to 8-10 g per day and gradually increase to 25 g/d or as tolerated Rec Na: < 2000 mg /d Educate patient on: (R= Reviewed, V = verbalizes understanding N/R= Needs review N/A= not applicable) Reviewed Differences in MACRO * Food sources of carbohydrates and serving adequate serving sizes : R V * Difference between complex carbohydrates and simple carbohydrates, role of fiber: R * Differences between fats (MUFA/PUFA/saturated fats, trans fats) and food sources of various fats: R * Food sources of sodium and salt and healthy modifications for heart health and kidney health: R * Vitamins and minerals: R * How to interpret food labels: R * Healthy Plate method concept: R * Physical activity: benefits and precaution: R * Health risks associated with excess body weight including but not limited to DM, CHD, risks of bone fractures: R, V Patient Instructions: * Keep physically active , 30 minutes up to 60 minutes twice a week * keep hydrated y choosing water, herb/fruit flavor infused water * Be mindful of fats in the foods (fries, chips , added oils to the foods) and continue working on reducing these Coding Level of Care Code Nutr Indiv Subseq (56360) Diagnoses Morbid obesity E66.01 Time Spent (min) 30
--- OUTSIDE RECORDS SUMMARY | 2024-04-19 15:25 | XMS_ITS | Data Portability ---
Author Organization [facility], [address] Address [address] [place] [address] Assessment No assessment recorded. Plan of Treatment Reminders Order Date Submit Date Provider Last Modified By Organization Details Last Modified Time Details Appointments None recorded. Lab rapid strep group A, throat 2023 024 [email or web address] [facility], [address] [place], [address], 4 17:02:03 streptococc us group A, culture, throat 2023 024 [place] [facility], [address] [place] [address], [place], [address], 4 08:06:42 Referral None recorded. Procedures None recorded. Surgeries None recorded. Imaging None recorded. Medication Orders Allergy Relief (fluticason e) 50 mcg/actuati on nasal spray,suspe nsion 2023 024 [id number], [address] [place], [address], 4 18:00:17 benzonatate 200 mg capsule [email or web address]/[facility]armacy #[id number], [address] [place], [address], 4 18:00:16 amoxicillin 875 mg-potassiu m clavulanate 125 mg tablet 2023 024 [facility] #[id number], [address] [place], [address], 18:08:23 Patient TargetsNo targets recorded. Patient Instructions Encounter Date Encounter Id Patient Instructions Last Modified By Organization Details Last Modified Time 04/08/2023 [id number] sore throat: car e instructions Not available 04/08/2023 17:02:01 Use over the counter medications for your sore throat. Basic lozenges (cough drops) or lozenges with an anesthetic (numbing agent) can be used as needed for quick results; look for the active ingredient, benzocaine, for numbing lozenges (like Cepacol Extra or Chloraseptic Max). Gargling with warm salt water can also relieve pain. Dissolve 1/4 to 1/2 teaspoon in 8-ounces of warm water; gargle and spit salt solution every hour, as needed. Sore throat pain can also be reduced by taking regular doses of acetaminophen (tylenol) or ibuprofen (Advil); if you are given a prescription of PREDNISONE, you may continue to take acetamminophen, but do not take ibuprofen or naprosyn. While this isn't quick, it can significantly reduce pain within an hour after taking. Please switch toothbrush after being on antibiotic for 24 hrs. You should follow-up with your PCP in days, or at any time if your condition does not improve or worsens. Any acute change should prompt a visit to the nearest Emergency Department. . Not available 04/08/2023 17:02:20 Sinusitis is an infection of the lining of the sinus cavities in your head. Sinusitis often follows a cold. It causes pain and pressure in your head and face. In most cases, sinusitis gets better on its own in 1 to 2 weeks. But some mild symptoms may last for several weeks. Sometimes antibiotics are needed. if you are having problems. It's also a good idea to know your test results and keep a list of the medicines you take. How can you care for yourself at home? Take an ayze-sud-qnopvti pain medicine. Avoid Ibuprofen, Aleve and Aspirin if . If the doctor prescribed antibiotics, take them as directed. Do not stop taking them just because you feel better. You need to take the full course of antibiotics. Be careful when taking wvxy-wwt-citnzjg cold or influenza (flu) medicines and Tylenol at the same time. Many of these medicines have acetaminophen, which is Tylenol. Read the labels to make sure that you are not taking more than the recommended dose. Too much acetaminophen (Tylenol) can be harmful. Breathe warm, moist air from a steamy shower, a hot bath, or a sink filled with hot water. Avoid cold, dry air. Using a humidifier in your home may help. Follow the directions for cleaning the machine. Use saline (saltwater) nasal washes. This can help keep your nasal passages open and wash out mucus and bacteria. You can buy saline nose drops at a grocery store or drugstore. Or you can make your own at home by adding 1 teaspoon (5 millilitres) of salt and 1 teaspoon (5 millilitres) of baking soda to 2 cups (500 mL) of distilled water. If you make your own, fill a bulb syringe with the solution, insert the tip into your nostril, and squeeze gently. Blow your nose. Put a hot, wet towel or a warm gel pack on your face 3 or 4 times a day for 5 to 10 minutes each time. Try a decongestant nasal spray like oxymetazoline (Drixoral). Do not use it for more than 3 days in a row. Using it for more than 3 days can make your congestion worse. [email or web address] Not available 04/08/2023 17:02:13 Reason for Referral None Reported. Results Created Date Observation Date Name Description Value Unit Range Abnormal Flag Note LastModifiedBy Organization Detail LastModifiedTime 04/08/19 24 04/11/2023 BETA STREP GP A CULTU RE beta strep gp A culture NEGATI VE Refer ence Range : Negat sandra Not Available [facility] ([facility]) [address] [facility], [place], [address], 04/11/2023 08:06:42 04/08/1904/08/2023 rapid strep group A, throa t Unknown Analyte negati ve Not Available [address] [facility], [place], [address], 04/08/2023 16:46:40 04/08/19 24 04/08/2023 rapid strep group A, throa t Unknown Analyte yes Not Available [address] [facility], [place], [address], 04/08/2023 16:46:40 Result Notes None recorded. Problems Name Problem SNOMED Code Status Onset Date Resolution Date Notes Provider Name and Address Organization Details Recorded Time Hypertensive disorder 23461356 Active Tala booker PA - [facility] 4 16:43:23 Polycystic ovary syndrome 542227488 Active Tala booker PA - [facility] 4 16:43:30 Anxiety 97669822 Active Tala booker PA - [facility] 4 16:44:31 Problem Notes None recorded. Procedures Surgical History Date Name Laterality Status Provider Name and Address Organization Details Recorded Time tonsillectomy completed Tala Price PA - [facility] 04/08/2023 16:45:32 Imaging Results None recorded. Procedure Notes None recorded. Medical Equipment None Reported. Allergies No known drug allergies Medications Name Sig Start Date Stop Date Status Note LastModified by Organization Details LastModified Time benzonatate 200 mg capsule TAKE 1 CAPSULE BY MOUTH THREE TIMES A DAY NEEDED FOR 7 DAYS 12/19 completed Not Available Not Available Not Available levothyroxi ne 75 mcg tablet TAKE 1 TABLET BY MOUTH EVERY DAY active Not Available Not Available No t Available bisoprolol fumarate 5 mg tablet TAKE 1 TABLET BY MOUTH EVERY DAY active Not Available Not Available No t Available levothyroxi ne 88 mcg tablet TAKE 1 TABLET BY MOUTH EVERY DAY active Not Available Not Available No t Available fluticasone propionate 50 mcg/actuati on nasal spray,suspe nsion SPRAY 1 SPRAY EVERY DAY BY INTRANASA L ROUTE DIRECTED FOR 90 DAYS. active Not Available Not Available No t Available metformin ER 500 mg tablet,exte nded release 24 hr TAKE 4 TABLETS BY MOUTH DAILY active Not Available Not Available No t Available sertraline 50 mg tablet TAKE 1 TABLET BY MOUTH EVERY DAY active Not Available Not Available No t Available amoxicillin 875 mg-potassiu m clavulanate 125 mg tablet Take 1 tablet every 12 hours by oral route for 5 days. active Not Available Not Available No t Available olmesartan 5 mg tablet TAKE 1 TABLET BY MOUTH DAILY WITH 20MG active Not Available Not Available No t Available olmesartan 20 mg tablet TAKE 1 TABLET BY MOUTH EVERY DAY active Not Available Not Available No t Available sertraline active Not Available Not Av ailable Not Available levothyroxi ne active Not Available Not Available Not Available omeprazole active Not Available Not Av ailable Not Available metformin active Not Available Not Ratna ilable Not Available olmesartan active Not Available Not Av ailable Not Available bisabolol (bulk) active Not Available Not Available Not Available Vitals Date Recorded Body height Provider Name an d Address Organization Details Last Updated DateTime 04/08/2023 170.18 cm Tala Price PA - [facility] 04/08/2023 16:41:04 Date Recorded Body mass index (BMI) Body weight Provider Name and Address Organization Details Last Updated DateTime 04/08/2023 55.6 kg/m2 540315.29 g Tala Price PA - [facility] 04/08/2023 16:41:07 Date Recorded Oxygen saturation Oxygen saturation in Arterial blood by Pulse oximetry Provider Name and Address Organization Details Last Updated DateTime 04/08/2023 97 % 97 % Tala Price PA - [facility] 04/08/2023 16:41:19 Date Recorded Heart rate Provider Name an d Address Organization Details Last Updated DateTime 04/08/2023 76 /min Tala Price PA - [facility] 04/08/2023 16:41:21 Date Recorded Body temperature Provider Name a nd Address Organization Details Last Updated DateTime 04/08/2023 97.3 [degF] Tala Price PA - [facility] 04/08/2023 16:41:53 Date Recorded Respiratory rate Provider Name a nd Address Organization Details Last Updated DateTime 04/08/2023 18 /min Tala Price PA - [facility] 04/08/2023 16:41:59 Date Recorded Body height Provider Name an d Address Organization Details Last Updated DateTime 12/20/2023 170.18 cm Isabell Rock PA - [facility] 0 12/20/2023 18:00:06 Date Recorded Body mass index (BMI) Body weight Provider Name and Address Organization Details Last Updated DateTime 12/20/2023 55.6 kg/m2 334526.29 g Isabell Rock PA - [facility] 12/20/2023 18:00:10 Date Recorded Body temperature Provider Name a nd Address Organization Details Last Updated DateTime 12/20/2023 98.2 [degF] Isabellkylie Rock PA - [facility] 12/20/2023 18:03:17 Date Recorded Respiratory rate Provider Name a nd Address Organization Details Last Updated DateTime 12/20/2023 18 /min Isabell Rock PA - [facility] 0 12/20/2023 18:03:20 Date Recorded Heart rate Provider Name an d Address Organization Details Last Updated DateTime 12/20/2023 77 /min Isabellkylie Rock PA - [facility] 0 12/20/2023 18:03:31 Date Recorded Oxygen saturation Oxygen saturation in Arterial blood by Pulse oximetry Provider Name and Address Organization Details Last Updated DateTime 12/20/2023 97 % 97 % Isabell Rock PA - [facility] 12/20/2023 18:03:35 Date Recorded Systolic blood pressure Diastolic blood pressure Provider Name and Address Organization Details Last Updated DateTime 04/08/2023 130 mm[Hg] 82 mm[Hg] Tala Price PA - [facility] 04/08/2023 16:41:12 Date Recorded Systolic blood pressure Diastolic blood pressure Provider Name and Address Organization Details Last Updated DateTime 12/20/2023 137 mm[Hg] 88 mm[Hg] Isabellkylie Rock PA - [facility] 12/20/2023 18:03:50 Social History Question Answer Notes LastModified by Organizat ion Details LastModified Time Tobacco Smoking Status Never Smoker Tala booker PA - [facility] 04/08/2023 16:45:17 What Is Your Level Of Alcohol Consumption? Occasional [email or web address] Information not available 04/08/2023 How Many Times Per Week Do You Consume Alcohol? Less Than 1 Time Per Week [email or web address] Information not available 04/08/2023 Are You Currently Employed? Yes Information not available 12/20/2023 Have You Had A Flu Shot This Season? No [email or web address] Information not available 04/08/2023 Have You Had Direct Contact, Or Contact During Intimacy, With Monkeypox Rash, Scabs, Or Body Fluids From A Person With Monkeypox? No [email or web address] Information not available 04/08/2023 What Was The Date Of Your Most Recent Tobacco Screening? 12/20/2023 Information not available 12/20/2023 Do You Use Any Illicit Or Recreational Drugs? No [email or web address] Information not available 04/08/2023 Have You Recently Traveled Abroad? No [email or web address] Information not available 04/08/2023 Sex: Unknown Functional Status None recorded. Mental Status None recorded. Family History Nothing Reported. Medical History No medical history recorded. Gynecological History Statement/Question Response Date of LMP 12/20/2023 Is there any chance of ? No LMP Definite Obstetrics History GPAL:G 0 P 0 0 0 0 Immunizations Vaccine Type Date Status Note Provider Nam e and Address Organization Details Recorded Time Influenza, MDCK, quadrivalent, PF 12/12/2019 completed Isabell Rock null, PA - [facility] 12/20/2023 18:01:25 Hep B, adult 04/21/2019 completed Isabell Rock null, PA - [facility] 12/20/2023 18:01:25 Hep B, adult 09/14/2019 completed Isabell Rock null, PA - [facility] 12/20/2023 18:01:25 Hep B, adult 03/21/2019 completed Isabell Rock null, PA - [facility] 12/20/2023 18:01:25 Past Encounters Encounter ID Performer Location Encounter Start Date Encounter Closed Date Diagnosis/Indication Diagnosis SNOMED-CT Code Diagnosis ICD10 Code Diagnosis [place] [id number] [place] [address] [address] [address] [place] [address] 04/08/2023 16:27:48 04/08/2023 17:03:27 Acute sinusitis 92136575 J01.90 [id number] KELLY Alexander [address] [address] [place] [address] 12/20/2023 17:36:56 12/20/2023 18:09:51 Acute left otitis media 235084694 H66.92 You have been diagnosed with a middle ear infection. You were prescribed antibiotic s to help clear that infection. Recommenda tions1. Use the medication s prescribed .2. Decongesta nts if tolerated, ibuprofen and acetaminop hen as needed3. Recommend recheck if fever develops or no improvemen t in 5-7 days.4. Have your ear rechecked in in 2 weeks with your primary provider to verify infection has resolved.5 . Use a cool mist humidifier in the room that you sleep to add moisture to the air, which should soothe the airways and help loosen any mucus that may be present. If you develop any of the following Symptoms I would be seen again - I would recommend the ER1. Fever > 101.02. Stiff Neck3. Pain in the skull behind the Ear.4. Worsening Pain5. Bleeding from the Ear6. Severe Sore Throat.7. Severe Headache Antibiotic s typically take 4-5 days to start working so do the above to help with your symptoms. Probiotics are important while taking antibiotic s - I recommend Florastor Make sure you finish the full course of the antibiotic s - if you don't this can lead to antibiotic resistance . Thank you for using [facility] today - and don't hesitate to contact our office if you have any concerns or questions. Health Concerns Section Related Observation LastModified by Organization Detai ls LastModified Time None Recorded Concern Status LastModified by Organization Details LastModified Time None Recorded Advance Directives Directive None Recorded Payers Encounter Date Sequence Insurance Name Policy Number Policy Kaplan Covered Member ID Kaplan Member ID Guarantor Name 04/08/2023 1 [place] [id number] 1 Nick Navarrete [id number] Saadia urias 12/20/2023 1 [place] [id number] 1 Nick Navarrete [id number] Saadia urias Notes Date Note Type Note Provider Name and Address Organization Details Recorded Time 4 text/html Sore throatReported bypatient.Source of patient informationInformation obtained from patient; Patient arrived at Urgent Care ambulatory; learning styles: auditory Location:throat Severity:mild Quality:sharp; burning Onset/Timin days Associated Symptoms:no sputum production; no shortness of breath; no wheezing; no vomiting; no nausea;sore throat;hoarseness;coughing; sinus pain/ congestion Context:no foreign travel; non-smoker;sick contact Modifying Factors:exposed to Strep non household Wilman ALYSSA Carson [address] [place], [address], PA - [facility] 04/08/2023 17:03:33 4 text/html 38 y/o female here with left ear pain and fullness for the past week after a head cold just before that KELLY Alexander [address] [place], [address], PA - [facility] 12/20/2023 18:09:44 OBGyn Episode No OBEpisode recorded.
== END 2024-04-19 13:58 | disposition home or self-care (01) ==
PROVIDERS: PCP Internal Medicine; Visit Provider Dietitian, Registered
DX: E66.01 Morbid (severe) obesity due to excess calories (principal)

== ENCOUNTER → 2024-04-19 13:17 | Outpatient (BNVA) | payer BC, SELFPAY | PROVIDERS: PCP Internal Medicine; Visit Provider Dietitian, Registered | DX: E66.01 Morbid (severe) obesity due to excess calories (principal); Z68.43 Body mass index [BMI] 50.0-59.9, adult; Z71.3 Dietary counseling and surveillance | CPT/HCPCS: 97803 ==

== ENCOUNTER 2024-05-17 10:07 | Outpatient (AMB) | payer BC, SELFPAY ==
--- NOTE | 2024-05-17 10:25 | MHC.PC.OV ---
Vital Signs 05/17/24 10:26 Height 5 ft 7 in Weight 338 lb BMI 52.9 BP 134/86 Blood Pressure Location Lt brachial Position Sitting Respiration 20 Pulse 85 Pulse Source Pulse Oximeter Temp 98.1 F Temp Source Oral Pulse Oximetry (%) 98 Oxygen Delivery Method Room Air Intake Visit Reasons: PE Intake Note: Pt is here today for PE. Allergies No Known Allergies Allergy (Verified 05/17/24 10:29) Medication List - Last Reconciled 05/17/24 by Angélica Ford MD bisoprolol fumarate 5 mg PO DAILY flu vac qs 2019(4 yr up)CD(PF) mL IM levothyroxine 88 mcg PO DAILY metformin ER 2,000 mg (4 x 500 mg) PO DAILY olmesartan 20 mg PO DAILY olmesartan 10 mg (2 x 5 mg) PO DAILY sertraline 50 mg PO DAILY tirzepatide (weight loss) (Zepbound) 5 mg (0.5 mL) subcut QWEEK Tobacco use date assessed: 05/17/24 Dental Screening Dental Screen Date: 05/17/24 Did you have a dental visit in the last 12 months?: Yes Did you have a dental problem in the last 6 months where you did not have access to dental care?: No Was dental information given to patient?: Patient has dentist HPI PE HPI Details Patient presents for physical. She and her adopted the baby girl 3 months ago. [facility] Medical History Annual physical exam HTN (hypertension) PCOS (polycystic ovarian syndrome) Hypothyroid Amenorrhea Morbid obesity Menorrhagia Anxiety Surgical History Hx of tonsillectomy Family History Father Diabetes mellitus Kidney failure Mother Hypothyroidism Paternal Grandmother Ovarian cancer Paternal Grandfather Diabetes mellitus Social History Housing: House Alcohol intake: current Alcohol intake frequency: holidays/special occasions only Patient Tobacco Use Status: Never used Tobacco e-Cigarette/Vaping Use: Never Used service: No Current occupational status: employed Cognitive needs: No Hearing needs: No Vision needs: Yes Questionnaire PHQ-9 Over the last 2 weeks, how often have you been bothered by any of the following problems? 1. Little interest or pleasure in doing things: not at all 2. Feeling down, depressed, or hopeless: not at all 3. Trouble falling or staying asleep, or sleeping too much: several days 4. Feeling tired or having little energy: not at all 5. Poor appetite or overeating: not at all 6. Feeling bad about yourself - or that you are a failure or have let yourself or your family down: not at all 7. Trouble concentrating on things, such as reading the newspaper or watching television: not at all 8. Moving or speaking so slowly that other people could have noticed. Or the opposite - being so fidgety or restless that you have been moving around a lot more than usual: not at all 9. Thoughts that you would be better off or of hurting yourself in some way: not at all Total score: 1 Depression Screening Interpretation: Negative Depression Screening Done: Yes 41667 - PHQ-9 Billing: Yes Source: Developed by Drs. Billy Emery, Rowena De La Cruz, Soy Griggs and colleagues, with an educational loraine from [employer]. Thrive Questionnaire Date Thrive assessed: 05/17/24 I am a: Patient What is your living situation today?: I have a steady place to live Within the past 12 months, did the food you bought not last and you didn't have the money to get more?: Never true Within the past 12 months, did you worry whether your food would run out before you got money to buy more?: Never true Do you have trouble paying for medicines?: No Do you have trouble getting transportation to medical appointments?: No Do you have trouble paying your heating and electricity bill?: No Do you have trouble taking care of your child, family member or friend?: No Do you have trouble with day-to-day activities such as bathing, preparing meals, shopping, managing finances, etc.?: No Are you currently unemployed and looking for a job?: No Are you interested in more education?: No Please select the resources that you would like help with: None Currently or been in a relationship where the following occur: No concerns reported THRIVE Score: 0 AUDIT C Alcohol Use Questionnaire (AUDIT-C) 1. How often do you have a drink containing alcohol?: 2-4 times a month 2. How many drinks containing alcohol do you have on a typical day when you are drinking?: 3 or 4 3. How often do you have six or more drinks on one occasion?: Less than monthly Total Score: 4 PRO-7 AMB Questionnaire PRO-7 Date PRO - 7 assessed: 05/17/24 Feeling nervous, anxious, or on edge: 1 = Several days Not being able to stop or control worryin = Not at all Worrying too much about different things: 0 = Not at all Trouble relaxin = Not at all Being so restless that it is hard to sit still: 0 = Not at all Becoming easily annoyed or irritable: 0 = Not at all Feeling afraid as if something awful might happen: 0 = Not at all Total PRO-7 score (0-4 normal; 5-9 mild; 10-14 moderate; 15-21 severe): 1 Source: Developed by Drs. Billy Emery, Rowena De La Cruz, Soy Griggs and colleagues, with an educational loraine from [employer]. PRO-7 Assessment Billing PRO-7 Assessment Tool: PRO-7 Assessment 61303 Review of Systems Const All systems reviewed & are unremarkable except as noted in HPI and below Eyes Reports no additional complaints ENT Reports no additional complaints Card Reports no additional complaints Resp Reports no additional complaints GI Reports no additional complaints Reports no additional complaints Physical exam (Primary Care) Vital Signs: Last Vital Signs Temp 98.1 F 05/17/24 10:26 Pulse 85 05/17/24 10:26 Resp 20 05/17/24 10:26 BP 134/86 05/17/24 10:26 Pulse Ox 98 05/17/24 10:26 Oxygen Delivery Method Room Air 05/17/24 10:26 BMI result Body Mass Index 52.9 Tobacco/Smoking Status: Tobacco use Status Tobacco use date assessed 05/17/24 05/17/24 10:32 Patient Tobacco Use Status Never used Tobacco 05/17/24 10:32 e-Cigarette/Vaping Use Never Used 05/17/24 10:32 PHQ-9: PHQ-9 Score PHQ-9: Total score 1 05/17/24 10:32 Depression Screening Interpretation: Negative Thrive Assessment: Date of Thrive Assessment Date Thrive assessed 05/17/24 05/17/24 10:32 Currently or been in a relationship where the following occur: No concerns reported Const General: no acute distress HENMT Head: Yes normal to inspection Ears: hearing grossly normal bilaterally Throat: Yes posterior oropharynx normal Eyes General: appearance normal, both eyes and all related structures Resp Effort & Inspection: normal respiratory effort Auscultation: clear to auscultation bilaterally Cardio Rhythm: regular rhythm Heart sounds: S1 normal heart sound present and S2 normal heart sound present GI Inspection: Yes normal to inspection Palpation (GI): Soft to palpation Percussion: Yes normal to percussion Auscultation: normal bowel sounds Coding Level of Care Code Est Pt Prev Care 40-64y(67354) Diagnoses Hyperglycemia R73.9 Proteinuria R80.9 Hypothyroid E03.9 HTN (hypertension) I10 Morbid obesity E66.01 Additional Codes PRO-7 Assessment Billing - PRO-7 Assessment Tool: PRO-7 Assessment 03935 ([id number]) PHQ-9 - 93677 - PHQ-9 Billing: Yes ([id number]) Assessment & Plan Assessment & Plan (1) Hyperglycemia: Code(s): R73.9 - Hyperglycemia, unspecified Category: Medical Plan: Continue ADA diet check A1c (2) Proteinuria: Code(s): R80.9 - Proteinuria, unspecified Category: Medical Plan: Increase olmesartan to 40 mg a day (3) Hypothyroid: Code(s): E03.9 - Hypothyroidism, unspecified Category: Medical Plan: Continue levothyroxine (4) HTN (hypertension): Code(s): I10 - Essential (primary) hypertension Category: Medical Plan: Increase olmesartan to 40 mg a day continue bisoprolol, follow-up in 2 months (5) Morbid obesity: Comment: 56.4 (10/2023) BMI 58.7/375 lbs (11/2022) Code(s): E66.01 - Morbid (severe) obesity due to excess calories Category: Medical Plan: Patient lost 20 lb on 5 mg of Zepbound. Increase Zepbound to 7.5 mg for 2 months follow-up with ems manager and continue to increase physical activity Orders: Orders MM screening mammo BI Today Z12.31 - Encounter for screening mammogram for malignant neoplasm of breast Comprehensive [place]. Panel Fast 2 Months E03.9 - Hypothyroidism, unspecified, I10 - Essential (primary) hypertension, R73.9 - Hyperglycemia, unspecified, R80.9 - Proteinuria, unspecified TSH reflex Free T4 2 Months E03.9 - Hypothyroidism, unspecified, I10 - Essential (primary) hypertension, R73.9 - Hyperglycemia, unspecified, R80.9 - Proteinuria, unspecified Complete Blood Count Auto Diff 2 Months E03.9 - Hypothyroidism, unspecified, I10 - Essential (primary) hypertension, R73.9 - Hyperglycemia, unspecified, R80.9 - Proteinuria, unspecified Lipid Panel 2 Months E03.9 - Hypothyroidism, unspecified, I10 - Essential (primary) hypertension, R73.9 - Hyperglycemia, unspecified, R80.9 - Proteinuria, unspecified Hemoglobin A1c 2 Months E03.9 - Hypothyroidism, unspecified, I10 - Essential (primary) hypertension, R73.9 - Hyperglycemia, unspecified, R80.9 - Proteinuria, unspecified UA w Microscopic 2 Months E03.9 - Hypothyroidism, unspecified, I10 - Essential (primary) hypertension, R73.9 - Hyperglycemia, unspecified, R80.9 - Proteinuria, unspecified Microalbumin, Random (w Creat) 2 Months E03.9 - Hypothyroidism, unspecified, I10 - Essential (primary) hypertension, R73.9 - Hyperglycemia, unspecified, R80.9 - Proteinuria, unspecified Medications: New olmesartan 40 mg PO DAILY 90 tabs 1RF Zepbound (tirzepatide (weight loss)) 7.5 mg (0.5 mL) subcut QWEEK 6 mL 0RF NS Refilled bisoprolol fumarate 5 mg PO DAILY 90 tabs 3RF I10 - Essential (primary) hypertension levothyroxine 88 mcg PO DAILY 90 tabs 3RF metformin ER 2,000 mg (4 x 500 mg) PO DAILY 360 tabs 3RF E11.9 - Type 2 diabetes mellitus without complications Discontinued olmesartan Discontinued Reason: Doctor's Order 20 mg PO DAILY 90 tabs 3RF olmesartan take with Olmesartan 20 mg Discontinued Reason: Doctor's Order 10 mg (2 x 5 mg) PO DAILY 180 tabs 1RF tirzepatide (weight loss) (Zepbound) Discontinued Reason: Doctor's Order 5 mg (0.5 mL) subcut QWEEK 2 mL 2RF
[2024-05-17 10:26] VITALS: BP 134/86; PULSE 85; RESP 20; TEMP 36.7; O2SAT 98; BMI 52.9
--- OUTSIDE RECORDS SUMMARY | 2024-05-17 12:12 | XMS_ITS | Data Portability ---
Author Organization [facility], [address] Address [address] [place] [address] Assessment No assessment recorded. Plan of Treatment Reminders Order Date Submit Date Provider Last Modified By Organization Details Last Modified Time Details Appointments None recorded. Lab rapid strep group A, throat 2023 024 [email or web address] [facility] [address], [address] [place], [address], 4 17:02:03 streptococc us group A, culture, throat 2023 024 PINDALL [facility], [address] [place] [address], [place], [address], 4 08:06:42 Referral None recorded. Procedures None recorded. Surgeries None recorded. Imaging None recorded. Medication Orders amoxicillin 875 mg-potassiu m clavulanate 125 mg tablet 2023 024 [facility] #[id number], [address] [place], [address], 4 18:08:23 Allergy Relief (fluticason e) 50 mcg/actuati on nasal spray,suspe nsion 2023 024 [facility] #[id number], [address] [place], [address], 4 18:00:17 benzonatate 200 mg capsule [email or web address]/[facility]acy #[id number], [address] [place], [address], 18:00:16 Patient TargetsNo targets recorded. Patient Instructions Encounter Date Encounter Id Patient Instructions Last Modified By Organization Details Last Modified Time 04/08/2023 [id number] sore throat: car e instructions Not available [...] care for yourself at home? Take an bfnm-ndd-wklfgle pain medicine. Avoid Ibuprofen, Aleve and Aspirin if . If the doctor prescribed antibiotics, take them as directed. Do not stop taking them just because you feel better. You need to take the full course of antibiotics. Be careful when taking aica-tsv-glhgrtc cold or influenza (flu) medicines and Tylenol [...] sandra Not Available [facility] ([facility]) [address] [facility], [place], [address], 04/11/2023 08:06:42 04/08/1904/08/2023 rapid strep group A, throa t Unknown Analyte negati ve Not Available [id number] [facility], [place], [address], 04/08/2023 16:46:40 04/08/19 24 04/08/2023 rapid strep group A, throa t Unknown Analyte yes Not Available [address] [facility], [place], [address], 04/08/2023 16:46:40 Result Notes None recorded. Problems Name Problem SNOMED Code Status Onset Date Resolution Date Notes Provider Name and Address Organization Details Recorded Time Hypertensive disorder 84296668 Active Tala booker PA - [facility] 4 16:43:23 Polycystic ovary syndrome 891731967 Active Tala booker PA - [facility] 4 16:43:30 Anxiety 22718488 Active Tala booker PA - [facility] [...] Not Available Vitals Date Recorded Body height Body mass index (BMI) Body weight Oxygen saturation Oxygen saturation in Arterial blood by Pulse oximetry Heart rate Body temperature Respiratory rate Systolic blood pressure Diastolic blood pressure Provider Name and Address Organization Details Last Updated DateTime 4 170.18 cm 55.6 kg/m2 549241. 29 g 97 % 97 % 76 /min 97.3 [degF] 18 /min 130 mm[Hg] 82 mm[Hg] Tala Price PA [facility] 4 16:41:12 Date Recorded Body height Body mass index (BMI) Body weight Body temperature Respiratory rate Heart rate Oxygen saturation Oxygen saturation in Arterial blood by Pulse oximetry Systolic blood pressure Diastolic blood pressure Provider Name and Address Organization Details Last Updated DateTime 4 170.18 cm 55.6 kg/m2 535784. 29 g 98.2 [degF] 18 /min 77 /min 97 % 97 % 137 mm[Hg] 88 mm[Hg] Isabell MENDOZA - [facility] 4 18:03:50 Social History Question Answer Notes LastModified by Organizat ion Details LastModified Time Tobacco Smoking Status Never Smoker Tala booker PA - [facility] 04/08/2023 16:45:17 What Is Your Level Of Alcohol Consumption? Occasional [email or web address] Information not available 04/08/2023 How Many Times Per Week Do You Consume Alcohol? Less Than 1 Time Per Week [email or web address] Information not available 04/08/2023 Are You Currently Employed? Yes Information not available 12/20/2023 Have You Had A Flu Shot This Season? No [email or web address] Information not available 04/08/2023 Have You Had Direct Contact, Or Contact During Intimacy, With Monkeypox Rash, Scabs, Or Body Fluids From A Person With Monkeypox? No [email or web address] Information not available 04/08/2023 What Was The Date Of Your Most Recent Tobacco Screening? 12/20/2023 Information not available 12/20/2023 Do You Use Any Illicit Or Recreational Drugs? No [email or web address] Information not available 04/08/2023 Have You Recently Traveled Abroad? No [email or web address] Information not available 04/08/2023 Sex: Unknown Functional [...] SNOMED-CT Code Diagnosis ICD10 Code Diagnosis Note [id number] [place] [address] [place] [address] 04/08/2023 16:27:48 04/08/2023 17:03:27 Acute sinusitis [id number] J01.90 [id number] [facility] [address] [place] [address] 12/20/2023 17:36:56 12/20/2023 18:09:51 Acute left otitis media [id number] H66.92 You have been diagnosed with a [...] antibiotic resistance . Thank you for using [facility] today - and don't hesitate to contact [...] Guarantor Name 04/08/2023 1 ISABELLEBS-[place]: DENNY (PPO) [id number] 1 Nick Navarrete [id number] Saadia urias 12/20/2023 1 [place]NY-[place]: DENNY (PPO) [id number] 1 Nick Navarrete [id number] Saadia urias Notes Date Note Type [...] Wilman ALYSSA Carson [address] [place], [address], PA - [facility] 04/08/2023 17:03:33 4 text/html 38 y/o female here with left ear pain and fullness for the past week after a head cold just before that KELLY Alexander [address] [place], [address], PA - [facility] 12/20/2023 18:09:44 OBGyn Episode No OBEpisode recorded.
== END 2024-05-17 11:17 | disposition home or self-care (01) ==
PROVIDERS: PCP Internal Medicine; Visit Provider Internal Medicine
DX: Z00.00 Encounter for general adult medical examination without abnormal findings (principal); E66.01 Morbid (severe) obesity due to excess calories; Z68.43 Body mass index [BMI] 50.0-59.9, adult; R73.9 Hyperglycemia, unspecified; R80.9 Proteinuria, unspecified; E03.9 Hypothyroidism, unspecified; I10 Essential (primary) hypertension

== ENCOUNTER → 2024-05-17 10:07 | Outpatient (BNVA) | payer BC, SELFPAY | PROVIDERS: PCP Internal Medicine; Visit Provider Internal Medicine | DX: R73.9 Hyperglycemia, unspecified (principal); R80.9 Proteinuria, unspecified; E03.9 Hypothyroidism, unspecified; I10 Essential (primary) hypertension; E66.01 Morbid (severe) obesity due to excess calories; Z68.43 Body mass index [BMI] 50.0-59.9, adult; Z79.899 Other long term (current) drug therapy | CPT/HCPCS: 96127 ==

== ENCOUNTER 2024-06-29 10:15 | Outpatient (REF) | payer BC, SELFPAY ==
[2024-06-29 11:05] LABS: MANUAL DIFF FLAG NO
[2024-06-29 11:13] LABS: Basophils Absolute Auto 0.1 X10*3/uL (0.0-0.2); Basophils Percent Auto 0.8 % (0-2); Eosinophils Absolute Auto 0.2 X10*3/uL (0.0-0.4); Eosinophils Percent Auto 2.8 % (0-4); Hematocrit 38.7 % (37.0-47.0); Hemoglobin 13.8 g/dl (12.0-16.0); Imm Gran Abs Auto 0.01 X10*3/uL (0.00-0.03); Imm Gran Pct Auto 0.2 % (0.0-0.4); Lymphocytes Percent Auto 30.9 % (20-40); Mean Corpuscular HGB Conc 35.7 g/dl (31.0-35.0); Mean Corpuscular Hemoglobin 31.1 pg (27.0-33.0); Mean Corpuscular Volume 87.2 fL (80.0-98.0); Mean Platelet Volume 8.8 fL (9.4-12.3); Monocytes Absolute Auto 0.3 X10*3/uL (0.1-1.2); Monocytes Percent Auto 5.2 % (2-11); Neutrophils Absolute Auto 3.9 x10*3/uL (2.0-8.3); Neutrophils Percent Auto 60.1 % (45-73); Platelet Count 248 X10*3/uL (160-400); Red Blood Count 4.44 X10*6/uL (4.20-5.50); Red Cell Distribution Width 12.4 % (11.0-16.0); White Blood Count 6.5 X10*3/uL (4.8-10.8)
[2024-06-29 11:20] LABS: Estimated Average Glucose 103 mg/dL; Hemoglobin A1C 122.9365 umol/L; Hemoglobin A1c % 5.2 % (<6.0); Total Hemoglobin (HGBA1C) 3651.2788 umol/L
[2024-06-29 11:53] LABS: Alanine Aminotransferase 33 U/L (0-31); Albumin Level 4.1 g/dL (3.5-5.0); Alkaline Phosphatase 65 U/L (39-117); Anion Gap 12 (12-20); Aspartate Amino Transferase 27 U/L (5-31); Bilirubin Total 0.4 mg/dL (0.0-1.0); Blood Urea Nitrogen 15 mg/dL (9-16); Carbon Dioxide 27 mmol/L (22-29); Chloride 107 mmol/L (96-108); Cholesterol 120 mg/dL (<200); Estimated Glomerular Filt Rate > 60; Glucose Fasting 85 mg/dL (60-99); HDL Cholesterol 35 mg/dL (>40); LDL Cholesterol Calculated 65 mg/dL (<100); Sodium 142 mmol/L (135-145); Total Protein 7.2 g/dL (6.5-8.0); Triglycerides 104 mg/dL (<150)
[2024-06-29 11:57] LABS: Appearance Urine Clear; Color Urine Yellow; Glucose Urine UA Negative (Negative); Leukocyte Esterase Urine Small (1+) (Negative); Nitrite Urine Negative (Negative); Specific Gravity - Urine 1.025 (1.005-1.025); UMIC TRIGGER UA YES; Urine Blood Large (3+) (Negative); Urine Ketones Negative (Negative); Urine Protein Trace mg/dL (Neg-Trace)
[2024-06-29 12:15] LABS: TSH reflex Free T4 2.32 uIU/mL (0.32-4.0)
[2024-06-29 12:24] LABS: Bacteria Urine Trace (None Seen); Hyaline Casts Urine 0-2 /LPF (0-2)
[2024-06-29 12:26] LABS: Creatinine Urine 155.24 mg/dL; Microalbum/Creatinine Ratio Ur 40.5 ug/mg cr (<30)
== END 2024-06-29 10:16 | disposition home or self-care (01) ==
LOC: HO.LAB 10:15
PROVIDERS: PCP Internal Medicine; Visit Provider Internal Medicine
DX: R73.9 Hyperglycemia, unspecified (principal); R80.9 Proteinuria, unspecified; E03.9 Hypothyroidism, unspecified; I10 Essential (primary) hypertension
CPT/HCPCS: 36415; 80053; 80061; 81001; 82043; 82570; 83036; 84443; 85025

== ENCOUNTER 2024-07-17 11:18 | Outpatient (AMB) | payer BC, SELFPAY ==
[2024-07-17 11:28] VITALS: BP 128/82; PULSE 88; RESP 20; TEMP 37.1; O2SAT 96; BMI 52.1
--- NOTE | 2024-07-17 11:28 | MHC.PC.OV ---
Vital Signs 07/17/24 11:28 Height 5 ft 7 in Weight 333 lb BMI 52.1 BP 128/82 Blood Pressure Location Lt brachial Position Sitting Respiration 20 Pulse 88 Pulse Source Pulse Oximeter Temp 98.8 F Temp Source Oral Pulse Oximetry (%) 96 Oxygen Delivery Method Room Air Intake Visit Reasons: 2m follow up Intake Note: Pt is here today for 2 months follow up visit. Allergies No Known Allergies Allergy (Verified 07/17/24 11:28) Medication List - Last Reconciled 07/17/24 by Angélica Ford MD bisoprolol fumarate 5 mg PO DAILY flu vac qs 2019(4 yr up)CD(PF) mL IM levothyroxine 88 mcg PO DAILY metformin ER 2,000 mg (4 x 500 mg) PO DAILY olmesartan 40 mg PO DAILY sertraline 50 mg PO DAILY Zepbound (tirzepatide (weight loss)) 7.5 mg (0.5 mL) subcut QWEEK NS Tobacco use date assessed: 07/17/24 Dental Screening Dental Screen Date: 05/17/24 HPI 2m follow up HPI Details Patient presents for the follow-up of hypertension hypothyroidism anxiety. She has been taking 7.5 mg of Zepbound for the last 2 months and lost 10 lb. She has been tolerating medication well PFSH Medical History Annual physical exam HTN (hypertension) PCOS (polycystic ovarian syndrome) Hypothyroid Amenorrhea Morbid obesity Menorrhagia Anxiety Surgical History Hx of tonsillectomy Family History Father Diabetes mellitus Kidney failure Mother Hypothyroidism Paternal Grandmother Ovarian cancer Paternal Grandfather Diabetes mellitus Social History Housing: House Alcohol intake: current Alcohol intake frequency: holidays/special occasions only Patient Tobacco Use Status: Never used Tobacco e-Cigarette/Vaping Use: Never Used service: No Current occupational status: employed Cognitive needs: No Hearing needs: No Vision needs: Yes Questionnaire Thrive Questionnaire Date Thrive assessed: 05/10/24 I am a: Patient What is your living situation today?: I have a steady place to live Within the past 12 months, did the food you bought not last and you didn't have the money to get more?: Never true Within the past 12 months, did you worry whether your food would run out before you got money to buy more?: Never true Do you have trouble paying for medicines?: No Do you have trouble getting transportation to medical appointments?: No Do you have trouble paying your heating and electricity bill?: No Do you have trouble taking care of your child, family member or friend?: No Do you have trouble with day-to-day activities such as bathing, preparing meals, shopping, managing finances, etc.?: No Are you currently unemployed and looking for a job?: No Are you interested in more education?: No Please select the resources that you would like help with: None Currently or been in a relationship where the following occur: No concerns reported THRIVE Score: 0 PRO-7 AMB Questionnaire PRO-7 Date PRO - 7 assessed: 05/17/24 Source: Developed by Drs. Billy Emery, Rowena De La Cruz, Soy Griggs and colleagues, with an educational loraine from [employer]. Review of Systems Const All systems reviewed & are unremarkable except as noted in HPI and below Eyes Reports no additional complaints ENT Reports no additional complaints Card Reports no additional complaints Resp Reports no additional complaints GI Reports no additional complaints Reports no additional complaints Physical exam (Primary Care) Vital Signs: Last Vital Signs Temp 98.8 F 07/17/24 11:28 Pulse 88 07/17/24 11:28 Resp 20 07/17/24 11:28 BP 128/82 07/17/24 11:28 Pulse Ox 96 07/17/24 11:28 Oxygen Delivery Method Room Air 07/17/24 11:28 BMI result Body Mass Index 52.1 Tobacco/Smoking Status: Tobacco use Status Tobacco use date assessed 07/17/24 07/17/24 11:29 Patient Tobacco Use Status Never used Tobacco 07/17/24 11:29 e-Cigarette/Vaping Use Never Used 07/17/24 11:29 Thrive Assessment: Date of Thrive Assessment Date Thrive assessed 05/10/24 07/17/24 11:29 Currently or been in a relationship where the following occur: No concerns reported Const General: no acute distress HENMT Ears: hearing grossly normal bilaterally Eyes General: appearance normal, both eyes and all related structures Resp Effort & Inspection: normal respiratory effort Auscultation: clear to auscultation bilaterally Cardio Rhythm: regular rhythm Heart sounds: S1 normal heart sound present and S2 normal heart sound present Coding Level of Care Code Est Pt Level 4 (64352) Diagnoses Morbid obesity E66.01 HTN (hypertension) I10 Hyperglycemia R73.9 Assessment & Plan Assessment & Plan (1) Morbid obesity: Comment: 56.4 (10/2023) BMI 58.7/375 lbs (11/2022) Code(s): E66.01 - Morbid (severe) obesity due to excess calories Category: Medical Plan: Increase Zepbound to 10 mg weekly. Continue decreasing caloric intake increasing physical activity follow-up in 3 months (2) HTN (hypertension): Code(s): I10 - Essential (primary) hypertension Category: Medical Plan: Increase bisoprolol to 7.5 mg a day continue 40 mg of olmesartan (3) Hyperglycemia: Code(s): R73.9 - Hyperglycemia, unspecified Category: Medical Plan: A1c is 6.2, decrease metformin to 1000 mg a day Orders: Orders Comprehensive [place]. Panel Fast 3 Months E66.01 - Morbid (severe) obesity due to excess calories, I10 - Essential (primary) hypertension, R73.9 - Hyperglycemia, unspecified Hemoglobin A1c 3 Months E66.01 - Morbid (severe) obesity due to excess calories, I10 - Essential (primary) hypertension, R73.9 - Hyperglycemia, unspecified Medications: New Zepbound (tirzepatide (weight loss)) 10 mg (0.5 mL) subcut QWEEK 4 mL 0RF NS Changed From bisoprolol fumarate 5 mg PO DAILY 90 tabs 3RF I10 - Essential (primary) hypertension To bisoprolol fumarate 7.5 mg (1.5 x 5 mg) PO DAILY 135 tabs 3RF I10 - Essential (primary) hypertension Discontinued Zepbound (tirzepatide (weight loss)) Discontinued Reason: Doctor's Order 7.5 mg (0.5 mL) subcut QWEEK 6 mL 0RF NS metformin ER Discontinued Reason: Doctor's Order 2,000 mg (4 x 500 mg) PO DAILY 360 tabs 3RF E11.9 - Type 2 diabetes mellitus without complications
--- OUTSIDE RECORDS SUMMARY | 2024-07-17 13:36 | XMS_ITS | Data Portability ---
Author Organization [facility], [address] Address [address] [place] [address] Assessment No assessment recorded. Plan of Treatment Reminders Order Date Submit Date Provider Last Modified By Organization Details Last Modified Time Details Appointments None recorded. Lab rapid strep group A, throat 2023 024 [email or web address] [facility] [address], [address] [place], [address], 4 17:02:03 streptococc us group A, culture, throat 2023 024 [place] [facility], [address] [place] [address], [place], [address], 4 08:06:42 Referral None recorded. Procedures None recorded. Surgeries None recorded. Imaging None recorded. Medication Orders amoxicillin 875 mg-potassiu m clavulanate 125 mg tablet 2023 024 [id number], [address] [place], [address], 4 18:08:23 Allergy Relief (fluticason e) 50 mcg/actuati on nasal spray,suspe nsion 2023 024 [id number], [address] [place], [address], 4 18:00:17 benzonatate 200 mg capsule [email or web address]/[facility]armacy #[id number], [address] [place], [address], 18:00:16 Patient TargetsNo targets recorded. Patient Instructions Encounter Date Encounter Id Patient Instructions Last Modified By Organization Details Last Modified Time 04/08/2023 [id number] sore throat: car e instructions Not available [...] care for yourself at home? Take an sxdl-ybn-fzjxfuf pain medicine. Avoid Ibuprofen, Aleve and Aspirin if . If the doctor prescribed antibiotics, take them as directed. Do not stop taking them just because you feel better. You need to take the full course of antibiotics. Be careful when taking qfny-diw-ahwgksj cold or influenza (flu) medicines and Tylenol [...] Range : Negat sandra Not Available [facility] ([facility]) [address] [facility], [place], [address], 04/11/2023 08:06:42 04/08/1904/08/2023 rapid strep group A, throa t Unknown Analyte negati ve Not Available [id number] [facility], [place], [address], 04/08/2023 16:46:40 04/08/19 24 04/08/2023 rapid strep group A, throa t Unknown Analyte yes Not Available _ [email or web address] [facility], [place], [address], 04/08/2023 16:46:40 Result Notes None recorded. Problems Name Problem SNOMED Code Status Onset Date Resolution Date Notes Provider Name and Address Organization Details Recorded Time Hypertensive disorder 83411967 Active Tala booker PA - [facility] 4 16:43:23 Polycystic ovary syndrome 196753234 Active Tala booker PA - [facility] 4 16:43:30 Anxiety 27779813 Active Tala booker PA - [facility] [...] Updated DateTime 4 170.18 cm 55.6 kg/m2 259480. 29 g 97 % 97 % 76 /min 97.3 [degF] 18 /min 130 mm[Hg] 82 mm[Hg] Tala Price PA [facility] 4 16:41:12 Date Recorded Body height Body mass index (BMI) Body weight Body temperature Respiratory rate Heart rate Oxygen saturation Oxygen saturation in Arterial blood by Pulse oximetry Systolic blood pressure Diastolic blood pressure Provider Name and Address Organization Details Last Updated DateTime 4 170.18 cm 55.6 kg/m2 364103. 29 g 98.2 [degF] 18 /min 77 /min 97 % 97 % 137 mm[Hg] 88 mm[Hg] Isabell MENDOZA - [facility] 4 18:03:50 Social History Question Answer Notes LastModified by Organizat ion Details LastModified Time Tobacco Smoking Status Never Smoker Tala booker PA - [facility] 04/08/2023 16:45:17 What Is Your Level Of Alcohol Consumption? Occasional [email or web address] Information not available 04/08/2023 How Many Times Per Week Do You Consume Alcohol? Less Than 1 Time Per Week [email or web address] Information not available 04/08/2023 Are You Currently Employed? Yes Information not available 12/20/2023 Have You Had A Flu Shot This Season? No [email or web address] Information not available 04/08/2023 Have You Had Direct Contact, Or Contact During Intimacy, With Monkeypox Rash, Scabs, Or Body Fluids From A Person With Monkeypox? No [email or web address] Information not available 04/08/2023 What Was The Date Of Your Most Recent Tobacco Screening? 12/20/2023 Information not available 12/20/2023 Do You Use Any Illicit Or Recreational Drugs? No [email or web address] Information not available 04/08/2023 Have You Recently Traveled Abroad? No [email or web address] Information not available 04/08/2023 Sex: Unknown Functional [...] SNOMED-CT Code Diagnosis ICD10 Code Diagnosis Note [id number] [place] [address] [address] [place] [address] 04/08/2023 16:27:48 04/08/2023 17:03:27 Acute sinusitis 85828668 J01.90 [id number] KELLY Alexander [address] [address] [place] [id number] 12/20/2023 17:36:56 12/20/2023 18:09:51 Acute left otitis media [id number] H66.92 You have been diagnosed with a [...] antibiotic resistance . Thank you for using [employer] today - and don't hesitate to contact [...] Guarantor Name 04/08/2023 1 ISABELLEBS-[place]: DENNY (PPO) [id number] 1 Nick Navarrete [id number] Saadia urias 12/20/2023 1 [place]NY-[place]: DENNY (PPO) [id number] 1 Nick Navarrete [id number] Saadia urias Notes Date Note Type [...] Wilman ALYSSA Carson [address] [place], [address], PA - [facility] 04/08/2023 17:03:33 4 text/html 38 y/o female here with left ear pain and fullness for the past week after a head cold just before that KELLY Alexander [address] [place], [address], PA - [facility] 12/20/2023 18:09:44 OBGyn Episode No OBEpisode recorded.
== END 2024-07-17 12:26 | disposition home or self-care (01) ==
LOC: HO.HMCC 11:18
PROVIDERS: PCP Internal Medicine; Visit Provider Internal Medicine
DX: I10 Essential (primary) hypertension (principal); E66.01 Morbid (severe) obesity due to excess calories; Z68.43 Body mass index [BMI] 50.0-59.9, adult; R73.9 Hyperglycemia, unspecified

== ENCOUNTER 2024-07-17 16:05 | Outpatient (REF) | payer BC, SELFPAY | END 2024-07-17 16:06 | disposition home or self-care (01) | LOC: HO.MAMMO 16:05 | PROVIDERS: PCP Internal Medicine; Visit Provider Internal Medicine | DX: Z12.31 Encounter for screening mammogram for malignant neoplasm of breast (principal) | CPT/HCPCS: 77063; 77067 ==

== ENCOUNTER → 2024-07-17 16:15 | Outpatient (BNV) | payer BC, SELFPAY | PROVIDERS: PCP Internal Medicine; Visit Provider Internal Medicine | DX: Z12.31 Encounter for screening mammogram for malignant neoplasm of breast (principal) | CPT/HCPCS: 77063; 77067 ==

== ENCOUNTER → 2024-09-06 14:55 | Outpatient (BNVA) | payer BC, SELFPAY | PROVIDERS: PCP Internal Medicine; Visit Provider Internal Medicine | DX: Z13.89 Encounter for screening for other disorder (principal) ==

== ENCOUNTER 2024-10-18 13:34 | Outpatient (AMB) | payer BC, SELFPAY ==
--- NOTE | 2024-10-18 14:02 | A.OFFPC_ITS ---
Vital Signs 10/18/24 14:10 Height 5 ft 7 in Weight 325 lb BMI 50.9 BP 134/80 Blood Pressure Location Lt brachial Position Sitting Respiration 20 Pulse 74 Pulse Source Pulse Oximeter Temp 98.4 F Temp Source Oral Pulse Oximetry (%) 98 Oxygen Delivery Method Room Air Intake Visit Reasons: 3m follow up Intake Note: Pt is here today for 3 months follow up visit. Allergies No Known Allergies Allergy (Verified 10/18/24 14:11) Medication List - Last Reconciled 10/18/24 by Angélica Ford MD bisoprolol fumarate 7.5 mg (1.5 x 5 mg) PO DAILY flu vac qs 2019(4 yr up)CD(PF) mL IM levothyroxine 88 mcg PO DAILY olmesartan 40 mg PO DAILY sertraline 50 mg PO DAILY Zepbound (tirzepatide (weight loss)) 12.5 mg (0.5 mL) subcut QWEEK NS Tobacco use date assessed: 10/18/24 Dental Screening Dental Screen Date: 10/18/24 Did you have a dental visit in the last 12 months?: Yes Did you have a dental problem in the last 6 months where you did not have access to dental care?: No Was dental information given to patient?: Patient has dentist HPI 3m follow up HPI Details Patient presents for the follow-up on hypertension type 2 diabetes hypothyroidism. She has been taking 10 mg of Zepbound decreasing caloric intake increasing physical activity and tolerating medication well for 3 months. [facility] Medical History Annual physical exam HTN (hypertension) PCOS (polycystic ovarian syndrome) Hypothyroid Amenorrhea Morbid obesity Menorrhagia Anxiety Surgical History Hx of tonsillectomy Family History Father Diabetes mellitus Kidney failure Mother Hypothyroidism Paternal Grandmother Ovarian cancer Paternal Grandfather Diabetes mellitus Social History Housing: House Alcohol intake: current Alcohol intake frequency: holidays/special occasions only Patient Tobacco Use Status: Never used Tobacco e-Cigarette/Vaping Use: Never Used service: No Current occupational status: employed Cognitive needs: No Hearing needs: No Vision needs: Yes Questionnaire Thrive Questionnaire Date Thrive assessed: 05/10/24 I am a: Patient What is your living situation today?: I have a steady place to live Within the past 12 months, did the food you bought not last and you didn't have the money to get more?: Never true Within the past 12 months, did you worry whether your food would run out before you got money to buy more?: Never true Do you have trouble paying for medicines?: No Do you have trouble getting transportation to medical appointments?: No Do you have trouble paying your heating and electricity bill?: No Do you have trouble taking care of your child, family member or friend?: No Do you have trouble with day-to-day activities such as bathing, preparing meals, shopping, managing finances, etc.?: No Are you currently unemployed and looking for a job?: No Are you interested in more education?: No Please select the resources that you would like help with: None Currently or been in a relationship where the following occur: No concerns reported THRIVE Score: 0 PRO-7 AMB Questionnaire PRO-7 Date PRO - 7 assessed: 05/17/24 Source: Developed by Drs. Billy Emery, Rowena De La Cruz, Soy Griggs and colleagues, with an educational loraine from [email or web address]. Review of Systems Const All systems reviewed & are unremarkable except as noted in HPI and below Eyes Reports no additional complaints ENT Reports no additional complaints Card Reports no additional complaints Resp Reports no additional complaints GI Reports no additional complaints Reports no additional complaints Physical exam (Primary Care) Vital Signs: Last Vital Signs Temp 98.4 F 10/18/24 14:10 Pulse 74 10/18/24 14:10 Resp 20 10/18/24 14:10 BP 134/80 10/18/24 14:10 Pulse Ox 98 10/18/24 14:10 Oxygen Delivery Method Room Air 10/18/24 14:10 BMI result Body Mass Index 50.9 Tobacco/Smoking Status: Tobacco use Status Tobacco use date assessed 10/18/24 10/18/24 14:16 Patient Tobacco Use Status Never used Tobacco 10/18/24 14:16 e-Cigarette/Vaping Use Never Used 10/18/24 14:02 Thrive Assessment: Date of Thrive Assessment Date Thrive assessed 05/10/24 10/18/24 14:02 Currently or been in a relationship where the following occur: No concerns reported Const General: no acute distress HENMT Head: Yes normal to inspection Eyes General: appearance normal, both eyes and all related structures Neck Neck: Yes no lymphadenopathy and Yes supple Resp Effort & Inspection: normal respiratory effort Auscultation: clear to auscultation bilaterally Cardio Rhythm: regular rhythm Heart sounds: S1 normal heart sound present and S2 normal heart sound present Coding Level of Care Code Est Pt Level 4 (91802) Complex EM visit Add On G2211 Diagnoses HTN (hypertension) I10 Hypothyroid E03.9 Hyperglycemia R73.9 Morbid obesity E66.01 Assessment & Plan Assessment & Plan (1) HTN (hypertension): Code(s): I10 - Essential (primary) hypertension Category: Medical Plan: Change bisoprolol 7.5 mg to bisoprolol with hydrochlorothiazide 10/6.25 mg daily and continue olmesartan. Follow-up in 3 months with a fasting labs (2) Hypothyroid: Code(s): E03.9 - Hypothyroidism, unspecified Category: Medical Plan: Continue levothyroxine (3) Hyperglycemia: Code(s): R73.9 - Hyperglycemia, unspecified Category: Medical Plan: Continue ADA diet increase physical activity continue metformin (4) Morbid obesity: Comment: 56.4 (10/2023) BMI 58.7/375 lbs (11/2022) Code(s): E66.01 - Morbid (severe) obesity due to excess calories Category: Medical Plan: increase Zepbound to 12.5 mg weekly, decreasing caloric intake increasing physical activity discussed with the patient Orders: Orders Comprehensive [place]. Panel Fast 3 Months E03.9 - Hypothyroidism, unspecified, I10 - Essential (primary) hypertension, R73.9 - Hyperglycemia, unspecified Hemoglobin A1c 3 Months E03.9 - Hypothyroidism, unspecified, I10 - Essential (primary) hypertension, R73.9 - Hyperglycemia, unspecified Lipid Panel 3 Months E03.9 - Hypothyroidism, unspecified, I10 - Essential (primary) hypertension, R73.9 - Hyperglycemia, unspecified TSH reflex Free T4 3 Months E03.9 - Hypothyroidism, unspecified, I10 - Essen tial (primary) hypertension, R73.9 - Hyperglycemia, unspecified Basic Metabolic Panel 1 Month E03.9 - Hypothyroidism, unspecified, I10 - Essential (primary) hypertension Microalbumin, Random (w Creat) 3 Months E03.9 - Hypothyroidism, unspecified, I10 - Essential (primary) hypertension, R73.9 - Hyperglycemia, unspecified Medications: New bisoprolol-hydrochlorothiazide 10-6.25 mg 1 tab PO DAILY 90 tabs 3RF Zepbound (tirzepatide (weight loss)) 12.5 mg (0.5 mL) subcut QWEEK 2 mL 3RF NS
[2024-10-18 14:10] VITALS: BP 134/80; PULSE 74; RESP 20; TEMP 36.9; O2SAT 98; BMI 50.9
== END 2024-10-18 15:19 | disposition home or self-care (01) ==
LOC: HO.HMCC 13:35
PROVIDERS: PCP Internal Medicine; Visit Provider Internal Medicine
DX: I10 Essential (primary) hypertension (principal); E66.01 Morbid (severe) obesity due to excess calories; Z68.43 Body mass index [BMI] 50.0-59.9, adult; E03.9 Hypothyroidism, unspecified; R73.9 Hyperglycemia, unspecified

== ENCOUNTER 2024-11-18 09:00 | Outpatient (REF) | payer BC, SELFPAY ==
[2024-11-18 11:17] LABS: Anion Gap 14 (12-20); Blood Urea Nitrogen 18 mg/dL (9-16); Calcium 8.9 mg/dL (8.4-10.2); Carbon Dioxide 23 mmol/L (22-29); Chloride 109 mmol/L (96-108); Estimated Glomerular Filt Rate > 60; Potassium 4.2 mmol/L (3.3-5.1); Sodium 142 mmol/L (135-145)
== END 2024-11-18 09:01 | disposition home or self-care (01) ==
LOC: HO.HMGCLDS 09:00
PROVIDERS: PCP Internal Medicine; Visit Provider Internal Medicine
DX: I10 Essential (primary) hypertension (principal); E03.9 Hypothyroidism, unspecified
CPT/HCPCS: 36415; 80048

== ENCOUNTER 2024-12-04 08:18 | Outpatient (AMB) | payer BC, SELFPAY ==
[2024-12-04 08:35] VITALS: BMI 49.8
--- NOTE | 2024-12-04 08:35 | A.OFFVIS_ITS ---
VS Expanded 12/04/24 08:35 Height 5 ft 7 in Weight 317 lb 14.505 oz BMI 49.8 Intake Visit Reasons: obesity Allergies No Known Allergies Allergy (Verified 10/18/24 14:11) Nutrition Presentation Details: Pt presents for MNT for OBesity Pt is on zepbound 12.5 mg/wk Pt reports doing well, working on reducing portion sizes food frequency fruits: 0/d dairy (almond, yogurt 1/day ) fish : 0-1/wk vegetables : 2/wk hydration : water, almond milk, 24 oz/day physical activity : daily life activities (has gym membership) [facility] ----- smoking denies BS Monitoring Most Recent Diabetes Results: Microalb/Creat Ratio, (<30) 40.5 ug/mg cr H 06/29/24 Cholesterol, (<200) 120 mg/dL 06/29/24 HDL Cholesterol, (>40) 35 mg/dL L 06/29/24 Triglycerides, (<150) 104 mg/dL 06/29/24 Creatinine, (0.5-1.4) 0.69 mg/dL 11/18/24 BUN, (9-16) 18 mg/dL H 11/18/24 Sodium, (135-145) 142 mmol/L 11/18/24 Potassium, (3.3-5.1) 4.2 mmol/L 11/18/24 Chloride, (96-108) 109 mmol/L H 11/18/24 Carbon Dioxide, (22-29) 23 mmol/L 11/18/24 Calcium, (8.4-10.2) 8.9 mg/dL 11/18/24 AST, (5-31) 27 U/L 06/29/24 ALT, (0-31) 33 U/L H 06/29/24 Total Protein, (6.5-8.0) 7.2 g/dL 06/29/24 Albumin, (3.5-5.0) 4.1 g/dL 06/29/24 KDK-Zcooxwl-Qd.Jeor Equation Height: 5 ft 7 in Weight: 318 lb Resting Metabolic Rate: 2141.89 Calculated Activity Level: Sedentary Calories Needed to Maintain Weight: 2570.27 [facility] Medical History Annual physical exam HTN (hypertension) PCOS (polycystic ovarian syndrome) Hypothyroid Amenorrhea Morbid obesity Menorrhagia Anxiety Surgical History Hx of tonsillectomy Family History Father Diabetes mellitus Kidney failure Mother Hypothyroidism Paternal Grandmother Ovarian cancer Paternal Grandfather Diabetes mellitus Social History Housing: House Alcohol intake: current Alcohol intake frequency: holidays/special occasions only Patient Tobacco Use Status: Never used Tobacco e-Cigarette/Vaping Use: Never Used service: No Current occupational status: employed Cognitive needs: No Hearing needs: No Vision needs: Yes Assessment & Plan Assessment & Plan (1) Morbid obesity: Comment: 56.4 (10/2023) BMI 58.7/375 lbs (11/2022) Code(s): E66.01 - Morbid (severe) obesity due to excess calories Category: Medical Plan: Used wt : 162kg on 08/2023 , 151 kg (05/16) (on zepbound), 144 kg (12/14) Est kcal as per MSJ: 2600 (40% carb, 30% fat/prot) Est fluid needs: 3600 ml/d (25 ml/kg bw) about 15 cups/day Rec fiber: increase to 8-10 g per day and gradually increase to 25 g/d or as tolerated Rec Na: < 2000 mg /d Educate patient on: (R= Reviewed, V = verbalizes understanding N/R= Needs review N/A= not applicable) Reviewed Differences in MACRO * Food sources of carbohydrates and serving adequate serving sizes : R V * Difference between complex carbohydrates and simple carbohydrates, role of fiber: R * Differences between fats (MUFA/PUFA/saturated fats, trans fats) and food sources of various fats: R * Food sources of sodium and salt and healthy modifications for heart health and kidney health: R * Vitamins and minerals: R * How to interpret food labels: R * Healthy Plate method concept: R * Physical activity: benefits and precaution: R * Health risks associated with excess body weight including but not limited to DM, CHD, risks of bone fractures: R, V Patient Instructions: Choose low sodium foods options, aiming to less than 2000 mg/d -read food labels comparing sodium content EAt slowly, chew foods well and continue working on having small meals following healthy plate method creating healthy eating habits Keep hydrated , having water , low sugar beverages with meals and snacks make a routine of including a fruit at least twice a day in place of crackers/cookies/pastries as a low sodium high fiber snack Coding Level of Care Code Nutr Indiv Subseq (50245) Diagnoses Morbid obesity E66.01 Time Spent (min) 30
[2024-12-05 20:41] VITALS: BMI 49.8
== END 2024-12-04 09:06 | disposition home or self-care (01) ==
LOC: HO.ENCR 08:19
PROVIDERS: PCP Internal Medicine; Visit Provider Dietitian, Registered
DX: E66.01 Morbid (severe) obesity due to excess calories (principal)

== ENCOUNTER → 2024-12-04 08:18 | Outpatient (BNVA) | payer BC, SELFPAY | PROVIDERS: PCP Internal Medicine; Visit Provider Dietitian, Registered | DX: E66.01 Morbid (severe) obesity due to excess calories (principal) | CPT/HCPCS: 97803 ==

== ENCOUNTER 2025-01-06 08:35 | Outpatient (REF) | payer BC, SELFPAY ==
[2025-01-06 11:51] LABS: Alanine Aminotransferase 25 U/L (0-31); Albumin Level 4.3 g/dL (3.5-5.0); Alkaline Phosphatase 77 U/L (39-117); Anion Gap 12 (12-20); Aspartate Amino Transferase 23 U/L (5-31); Blood Urea Nitrogen 11 mg/dL (9-16); Calcium 8.9 mg/dL (8.4-10.2); Carbon Dioxide 26 mmol/L (22-29); Chloride 106 mmol/L (96-108); Cholesterol 140 mg/dL (<200); Estimated Glomerular Filt Rate > 60; HDL Cholesterol 32 mg/dL (>40); Potassium 4.1 mmol/L (3.3-5.1); Sodium 140 mmol/L (135-145); Total Protein 7.5 g/dL (6.5-8.0); Triglycerides 87 mg/dL (<150)
[2025-01-06 11:53] LABS: Total Hemoglobin (HGBA1C) 3553.3189 umol/L
[2025-01-06 12:07] LABS: Microalbum/Creatinine Ratio Ur 34.7 ug/mg cr (<30)
== END 2025-01-06 08:36 | disposition home or self-care (01) ==
LOC: HO.HMGCLDS 08:35
PROVIDERS: PCP Internal Medicine; Visit Provider Internal Medicine
DX: I10 Essential (primary) hypertension (principal); E03.9 Hypothyroidism, unspecified; R73.9 Hyperglycemia, unspecified
CPT/HCPCS: 36415; 80053; 80061; 82043; 82570; 83036; 84443

== ENCOUNTER 2025-01-19 14:11 | Outpatient (AMB) | payer BC, SELFPAY ==
[2025-01-19 14:26] VITALS: BP 136/80; PULSE 70; RESP 18; TEMP 36.6; O2SAT 98; BMI 48.7
--- NOTE | 2025-01-19 14:26 | MHC.PC.OV ---
Vital Signs 01/19/25 14:26 Height 5 ft 7 in Weight 311 lb BMI 48.7 BP 136/80 Blood Pressure Location Lt brachial Position Sitting Respiration 18 Pulse 70 Pulse Source Pulse Oximeter Temp 97.9 F Temp Source Oral Pulse Oximetry (%) 98 Oxygen Delivery Method Room Air Intake Visit Reasons: 3m follow up Intake Note: Pt is here today for 3 months follow up visit. Allergies No Known Allergies Allergy (Verified 01/19/25 14:29) Medication List - Last Reconciled 01/19/25 by Angélica Ford MD bisoprolol-hydrochlorothiazide 10-6.25 mg 1 tab PO DAILY flu vac qs 2019(4 yr up)CD(PF) mL IM levothyroxine 88 mcg PO DAILY olmesartan 40 mg PO DAILY sertraline 50 mg PO DAILY Zepbound (tirzepatide (weight loss)) 12.5 mg (0.5 mL) subcut QWEEK NS Tobacco use date assessed: 01/19/25 Dental Screening Dental Screen Date: 10/18/24 HPI 3m follow up HPI Details Patient presents for the follow-up on hypertension hypothyroidism hyperglycemia and obesity. Patient lost 11 lb on 12.5 mg of Zepbound. Patient has been decreasing caloric intake and increasing physical activity. She reports sensation of nausea for the first 2 days after taking injection, afterwards is able to tolerate medication well but noticed decreased appetite. FOR[facility]LY [facility] Medical History Annual physical exam HTN (hypertension) PCOS (polycystic ovarian syndrome) Hypothyroid Amenorrhea Morbid obesity Menorrhagia Anxiety Surgical History Hx of tonsillectomy Family History Father Diabetes mellitus Kidney failure Mother Hypothyroidism Paternal Grandmother Ovarian cancer Paternal Grandfather Diabetes mellitus Social History Housing: House Alcohol intake: current Alcohol intake frequency: holidays/special occasions only Patient Tobacco Use Status: Never used Tobacco e-Cigarette/Vaping Use: Never Used service: No Current occupational status: employed Cognitive needs: No Hearing needs: No Vision needs: Yes Questionnaire PHQ-9 Over the last 2 weeks, how often have you been bothered by any of the following problems? 1. Little interest or pleasure in doing things: not at all 2. Feeling down, depressed, or hopeless: not at all 3. Trouble falling or staying asleep, or sleeping too much: several days 4. Feeling tired or having little energy: not at all 5. Poor appetite or overeating: not at all 6. Feeling bad about yourself - or that you are a failure or have let yourself or your family down: not at all 7. Trouble concentrating on things, such as reading the newspaper or watching television: not at all 8. Moving or speaking so slowly that other people could have noticed. Or the opposite - being so fidgety or restless that you have been moving around a lot more than usual: not at all 9. Thoughts that you would be better off or of hurting yourself in some way: not at all Total score: 1 Depression Screening Interpretation: Negative Depression Screening Done: Yes Source: Developed by Drs. Billy Emery, Rowena De La Cruz, Soy Griggs and colleagues, with an educational loraine from [employer]. Thrive Questionnaire Date Thrive assessed: 05/10/24 I am a: Patient What is your living situation today?: I have a steady place to live Within the past 12 months, did the food you bought not last and you didn't have the money to get more?: Never true Within the past 12 months, did you worry whether your food would run out before you got money to buy more?: Never true Do you have trouble paying for medicines?: No Do you have trouble getting transportation to medical appointments?: No Do you have trouble paying your heating and electricity bill?: No Do you have trouble taking care of your child, family member or friend?: No Do you have trouble with day-to-day activities such as bathing, preparing meals, shopping, managing finances, etc.?: No Are you currently unemployed and looking for a job?: No Are you interested in more education?: No Please select the resources that you would like help with: None Currently or been in a relationship where the following occur: No concerns reported THRIVE Score: 0 PRO-7 AMB Questionnaire PRO-7 Date PRO - 7 assessed: 05/17/24 Source: Developed by Drs. Billy Emery, Rowena De La Cruz, Soy Griggs and colleagues, with an educational loraine from [employer]. Review of Systems Const All systems reviewed & are unremarkable except as noted in HPI and below Eyes Reports no additional complaints ENT Reports no additional complaints Card Reports no additional complaints Resp Reports no additional complaints GI Reports no additional complaints Reports no additional complaints Physical exam (Primary Care) Vital Signs: Last Vital Signs Temp 97.9 F 01/19/25 14:26 Pulse 70 01/19/25 14:26 Resp 18 01/19/25 14:26 BP 136/80 01/19/25 14:26 Pulse Ox 98 01/19/25 14:26 Oxygen Delivery Method Room Air 01/19/25 14:26 BMI result Body Mass Index 48.7 Tobacco/Smoking Status: Tobacco use Status Tobacco use date assessed 01/19/25 01/19/25 14:31 Patient Tobacco Use Status Never used Tobacco 01/19/25 14:27 e-Cigarette/Vaping Use Never Used 01/19/25 14:27 PHQ-9: PHQ-9 Score PHQ-9: Total score 1 01/19/25 15:22 Depression Screening Interpretation: Negative Thrive Assessment: Date of Thrive Assessment Date Thrive assessed 05/10/24 01/19/25 14:27 Currently or been in a relationship where the following occur: No concerns reported Const General: no acute distress HENMT Head: Yes normal to inspection Face and sinus: Yes normal facial exam Throat: Yes posterior oropharynx normal Eyes General: appearance normal, both eyes and all related structures Neck Neck: Yes supple Resp Effort & Inspection: normal respiratory effort Auscultation: clear to auscultation bilaterally Cardio Rhythm: regular rhythm Heart sounds: S1 normal heart sound present and S2 normal heart sound present GI Inspection: Yes normal to inspection Palpation (GI): Soft to palpation Percussion: Yes normal to percussion Auscultation: normal bowel sounds Coding Level of Care Code Est Pt Level 4 (77759) Diagnoses Morbid obesity E66.01 Hypothyroid E03.9 PCOS (polycystic ovarian syndrome) E28.2 HTN (hypertension) I10 Hyperglycemia R73.9 Assessment & Plan Assessment & Plan (1) Morbid obesity: Comment: 56.4 (10/2023) , BMI 58.7/375 lbs (11/2022) , BMI 48.7 (12/2024) Code(s): E66.01 - Morbid (severe) obesity due to excess calories Category: Medical Plan: Continue Zepbound at 12.5 mg weekly. Patient does not want to increase the dose, she will continue to decrease caloric intake increase physical activity and will follow-up in 3 months (2) Hypothyroid: Code(s): E03.9 - Hypothyroidism, unspecified Category: Medical Plan: Continue levothyroxine (3) PCOS (polycystic ovarian syndrome): Comment: on Metformin f/u [facility] order planner Code(s): E28.2 - Polycystic ovarian syndrome Category: Medical Plan: Continue metformin (4) HTN (hypertension): Code(s): I10 - Essential (primary) hypertension Category: Medical Plan: Continue current medications (5) Hyperglycemia: Code(s): R73.9 - Hyperglycemia, unspecified Category: Medical Plan: A1c is 5.2 continue ADA diet Orders: Orders Comprehensive [place]. Panel Fast 3 Months E03.9 - Hypothyroidism, unspecified, E28.2 - Polycystic ovarian syndrome, E66.01 - Morbid (severe) obesity due to excess calories, I10 - Essential (primary) hypertension, R73.9 - Hyperglycemia, unspecified Hemoglobin A1c 3 Months E03.9 - Hypothyroidism, unspecified, E28.2 - Polycystic ovarian syndrome, E66.01 - Morbid (severe) obesity due to excess calories, I10 - Essential (primary) hypertension, R73.9 - Hyperglycemia, unspecified Lipid Panel 3 Months E03.9 - Hypothyroidism, unspecified, E28.2 - Polycystic ovarian syndrome, E66.01 - Morbid (severe) obesity due to excess calories, I10 - Essential (primary) hypertension, R73.9 - Hyperglycemia, unspecified Vitamin D 25-OH Total 3 Months E03.9 - Hypothyroidism, unspecified, E28.2 - Polycystic ovarian syndrome, E66.01 - Morbid (severe) obesity due to excess calories, I10 - Essential (primary) hypertension, R73.9 - Hyperglycemia, unspecified Microalbumin, Random (w Creat) 3 Months E03.9 - Hypothyroidism, unspecified, E28.2 - Polycystic ovarian syndrome, E66.01 - Morbid (severe) obesity due to excess calories, I10 - Essential (primary) hypertension, R73.9 - Hyperglycemia, unspecified Complete Blood Count Auto Diff 3 Months E03.9 - Hypothyroidism, unspecified, E28.2 - Polycystic ovarian syndrome, E66.01 - Morbid (severe) obesity due to excess calories, I10 - Essential (primary) hypertension, R73.9 - Hyperglycemia, unspecified TSH reflex Free T4 3 Months E03.9 - Hypothyroidism, unspecified, E28.2 - Polycystic ovarian syndrome, E66.01 - Morbid (severe) obesity due to excess calories, I10 - Essential (primary) hypertension, R73.9 - Hyperglycemia, unspecified UA w Microscopic 3 Months E03.9 - Hypothyroidism, unspecified, E28.2 - Polycystic ovarian syndrome, E66.01 - Morbid (severe) obesity due to excess calories, I10 - Essential (primary) hypertension, R73.9 - Hyperglycemia, unspecified Medications: Discontinued bisoprolol fumarate Discontinued Reason: Doctor's Order 7.5 mg (1.5 x 5 mg) PO DAILY 135 tabs 3RF I10 - Essential (primary) hypertension
== END 2025-01-19 19:58 | disposition home or self-care (01) ==
LOC: HO.HMCC 14:12
PROVIDERS: PCP Internal Medicine; Visit Provider Internal Medicine
DX: E03.9 Hypothyroidism, unspecified (principal); E66.01 Morbid (severe) obesity due to excess calories; Z68.42 Body mass index [BMI] 45.0-49.9, adult; E28.2 Polycystic ovarian syndrome; I10 Essential (primary) hypertension; R73.9 Hyperglycemia, unspecified